=== PATIENT | female | born 1935 | race Caucasian/White ===

== ENCOUNTER 2019-05-04 12:27 | Inpatient (IN) ==
--- NOTE | 2019-05-04 13:25 | Diag Imaging Result Doc PS360 ---
CHEST-PORTABLE - 05/04/2019 INDICATION: fever COMPARISON: 11/23/2018 FINDINGS: The lungs are normally expanded and clear. Heart size and mediastinal contours are normal. No pneumothorax or pleural effusion. There are stable large rounded calcifications projecting over the lung bases bilaterally. IMPRESSION: Negative exam. Electronically signed by Eric Cannon 05/04/2019 1:22 PM
[2019-05-04 13:35] LABS: BASO# 0.02 X1000 (0.0-0.2); BASO% 0.3 % (0.0-0.8); EOS% 1.4 % (0.0-10.0); HEMATOCRIT 39.7 % (37.0-47.0); HEMOGLOBIN 13.3 g/dL (12.0-16.0); IMM GRAN# 0.02 X1000 (0.0-0.04); IMM GRAN% 0.3 % (0.0-0.5); LYMPH# 0.35 X1000 (1.2-3.4); LYMPH% 4.8 % (20.5-51.1); MCHC 33.5 g/dL (33-37); MCV 86.7 FL (81-99); MONO# 0.55 X1000 (0.11-0.59); MONO% 7.5 % (1.7-9.3); MPV 9.9 FL (7.4-10.4); NEUT# 6.28 X1000 (1.4-6.5); NEUT% 85.7 % (42.2-75.2); PLT 199 X1000 (130-400); RBC 4.58 XMIL (4.2-5.4); RDW 13.7 % (11.5-14.5); WBC 7.32 X1000 (4.8-10.8)
[2019-05-04 13:40] LABS: INR 1.1; PROTIME 15.1 Seconds (11.0-16.0)
[2019-05-04 13:41] LABS: PTT 30.6 Seconds (22.3-41.8)
[2019-05-04 13:55] LABS: AGAP 15; ALB/GLOB RATIO 1.1; ALBUMIN 3.4 g/dL (3.5-5.0); ALKALINE PHOSPHATASE 106 U/L (32-104); BUN 31 mg/dL (8-22); CALCIUM 8.3 mg/dL (8.8-10.2); CHLORIDE 94 mmol/L (98-107); COSMO 278; CREATININE 1.6 mg/dL (0.5-0.9); ESTIMATED GFR 31; GLUCOSE 158 mg/dL (70-104); GOT 12 U/L (10-30); GPT < 5 U/L (10-36); POTASSIUM 3.8 mmol/L (3.5-5.1); SODIUM 134 mmol/L (136-145); TCO2 25 mmol/L (25-35); TOTAL BILIRUBIN 1.13 mg/dL (0.20-1.00); TOTAL PROTEIN 6.5 g/dL (6.3-8.3)
[2019-05-04 15:41] LABS: URINE SOURCE CLEAN CATCH
[2019-05-04 15:49] LABS: BILIRUBIN URINE NEGATIVE (NEGATIVE); BLOOD URINE NEGATIVE (NEGATIVE); COLOR YELLOW; GLUCOSE URINE NEGATIVE (NEGATIVE); KETONE URINE NEGATIVE (NEGATIVE); LEUKOCYTES URINE MODERATE (NEGATIVE); NITRITE URINE POSITIVE (NEGATIVE); PROTEIN URINE TRACE mg/dL (NEGATIVE); TURBIDITY URINE HAZY (CLEAR); UROBILINOGEN URINE 3 mg/dL (NORMAL)
[2019-05-04 15:51] LABS: UR EPITHELIAL CELLS <10 /HPF (<10); URINE BACTERIA 4+ /HPF; URINE RBC <10 /HPF (<10); URINE WBC TNTC /HPF (<10)
[2019-05-04] MEDS ORDERED: KEFZOL 1 GM/D5W 1 GM/50 ML IVPB IV ONE (15:51)
[2019-05-04] MEDS ORDERED: MORPHINE IV ONE (17:09)
--- NOTE | 2019-05-04 17:23 | PROVIDER DOCUMENTATION ---
This chart was entered by Maria Teresa Padilla Scribe, acting as scribe for Clyde Pardo MD. HPI-Rash/Wound/ReCheck - General Chief Complaint: Nausea/Vomiting Stated Complaint: RASH X MONTH, VOMITING TODAY Time Seen by Provider: 05/04/19 12:55 Source: patient, family Allergies/Adverse Reactions: Allergies Allergy/AdvReac Type Severity Reaction Status Date / Time indomethacin [From Indocin] Allergy NAUSEA/VOMI Verified 12/26/16 22:36 TING indomethacin sodium * Allergy NAUSEA/VOMI Verified 12/26/16 22:36 [From Indocin] TING ketoprofen [From Oruvail] Allergy RASH Verified 11/23/18 13:45 meloxicam [From Mobic] Allergy RASH Verified 12/26/16 22:36 propranolol HCl * Allergy RASH Verified 12/26/16 22:36 [From Inderal [place]] celecoxib [From Celebrex] AdvReac Unknown Verified 11/23/18 13:45 etodolac AdvReac RASH Verified 11/23/18 13:45 nabumetone [From Relafen] AdvReac Unknown Verified 11/23/18 13:45 oxaprozin [From Daypro] AdvReac RASH Verified 11/23/18 13:45 piroxicam [From Feldene] AdvReac RASH Verified 11/23/18 13:45 Home Medications: Home Medication List Medication Instructions Recorded Confirmed Last Taken Type Aspirin EC 81 mg PO DAILY 01/07/16 12/26/16 12/26/16 History Clonidine [Catapres] 0.1 mg PO BID 01/07/16 12/26/16 12/26/16 History Febuxostat [Uloric] 40 mg PO DAILY 01/07/16 12/26/16 12/26/16 History Hydralazine [Apresoline] 25 mg PO BID 01/07/16 12/26/16 12/26/16 History Metoprolol Tartrate [Lopressor] 100 mg PO BID 01/07/16 12/26/16 12/26/16 History Naloxegol Oxalate [Movantik] 25 mg PO DAILY 01/07/16 12/26/16 12/26/16 History Tolterodine Tartrate [Detrol LA] 4 mg PO DAILY 01/07/16 12/26/16 12/26/16 History Simvastatin [Zocor] 20 mg PO DAILY 12/26/16 12/26/16 12/26/16 History Acetaminophen [Tylenol] 1,000 mg PO Q8H #0 tablet 12/31/16 Unknown Rx Chlorhexidine Gluconate [Peridex] 15 ml MT BID #0 udc 12/31/16 Unknown Rx Cyanocobalamin [Vitamin B-12] 1,000 microgm PO DAILY #0 tablet 12/31/16 Unknown Rx Docusate Sodium [Colace] 200 mg PO QHS #0 capsule 12/31/16 Unknown Rx Ergocalciferol (Vitamin D2) 50,000 unit PO Q7D #0 capsule 12/31/16 Unknown Rx [Vitamin D] Famotidine [Pepcid] 40 mg PO DAILY #0 tablet 12/31/16 Unknown Rx Febuxostat [Uloric] 40 mg PO DAILY #0 tablet 12/31/16 Unknown Rx Ferrous Sulfate 325 mg PO WBREAKFAST #0 tablet 12/31/16 Unknown Rx Folic Acid 1 mg PO BID #0 tablet 12/31/16 Unknown Rx Magnesium Hydroxide [Milk of 30 ml PO DAILY PRN PRN #0 udc 12/31/16 Unknown Rx Magnesia] Oxycodone I.r. [Oxy Ir] 5 - 10 mg PO Q3H PRN PRN #40 12/31/16 Unknown Rx capsule Polyethylene Glycol 3350 [Miralax] 17 gm PO QHS #0 powder, packet 12/31/16 Unknown Rx Rivaroxaban [Xarelto] 10 mg PO Q24H #0 tablet 12/31/16 Unknown Rx Rivaroxaban [Xarelto] 10 mg PO DAILY@0600 #0 tablet 01/05/17 Unknown Rx Levofloxacin [Levaquin] 250 mg PO DAILY 4 Days #4 tab NS 11/23/18 Unknown Rx Cephalexin [Keflex] 500 mg PO 4XDAY #30 cap 05/04/19 Unknown Rx - History of Present Illness-Dermatology Nature of Presenting Problem: Patient is a 83 year old female who presents with generalized rash, fever, nausea and vomiting. Patient's family states patient rash has been present for 1.5 months. Family reports patient was seen by PCP 1 month ago and was diagnosed with scabies. Family states patient received medication and applied it twice with no improvement of symptoms. Family states going back to PCP and the PCP gave the patient a steroid shot and a referral to dermatology. Patient states fever, nausea and vomiting started this morning. Location: reports: generalized Quality: reports: painful Severity: reports: mild Onset/Duration: reports: other (1.5 months) Timing: reports: still present, getting worse Context/Associated Symptoms: reports: rash Locality of Occurance: Home Similar Symptoms Previously?: Yes Recently seen or treated by another doctor?: Yes Review of Systems - Adult - REVIEW OF SYSTEMS - ADULT Constitutional: reports: see HPI, fever. denies: chills, fatique Eyes: reports: no symptoms reported Ears, Nose, Mouth & Throat: reports: no symptoms reported Cardiovascular: reports: no symptoms reported Respiratory: reports: no symptoms reported Gastrointestinal: reports: see HPI, nausea, vomiting. denies: abdominal pain, diarrhea Genitourinary: reports: no symptoms reported Musculoskeletal: reports: no symptoms reported Integumentary: reports: see HPI, rash. denies: hives, itching Neurological: reports: no symptoms reported Psychiatric: reports: no symptoms reported Endocrine: reports: no symptoms reported Hematologic/Lymphatic: reports: no symptoms reported Allergic/Immunologic: reports: no symptoms reported All Other Systems: Reviewed and Negative Past History - Adult - PAST MEDICAL HISTORY-ADULT Review of Records: reports: Old Records Reviewed, Nursing Assessment Review, Medications Reviewed, Social history reviewed & non-contributory. Major Childhood Illnesses: reports: denies history Cardiovascular: reports: CHF, HTN, hyperlipidemia, [place] Respiratory: reports: sleep apnea Gastrointestinal: reports: denies history Obstetrical/Gynecological: reports: denies history Genitourinary: reports: dialysis (stopped 3 years prior per pt) Musculoskeletal: reports: denies history Neurological: reports: denies history Psychiatric: reports: denies history Endocrine/Immune: reports: Diabetes Other Conditions: reports: denies history - PRIOR SURGERIES/PROCEDURES Surgical/Procedure History: reports: cholecystectomy, hysterectomy, tonsillectomy, hernia repair, joint replacement - IMMUNIZATION STATUS Childhood Immunizations: See Nurse Assessment Flu Vaccine: See Nurse Assessment - FAMILY HISTORY Family History: reviewed, not pertinent - SOCIAL HISTORY Smoking: cigarettes (former) Substance Use: denies Living Situation: family Physical Exam-General - PHYSICAL EXAM-ADULT Initial Vital Signs Reviewed: Yes - CONSTITUTIONAL General Appearance: alert, no apparent distress. negative: lethargic, slow to respond - HEAD, EARS, NOSE, MOUTH & THROAT HENMT: other (no dentition present). negative: angioedema, hearing deficit - RESPIRATORY Respiratory: chest non-tender, lungs clear, normal breath sounds. negative: crackles, rhonchi, stridor - CARDIOVASCULAR Cardiovascular: normal peripheral pulses, regular rate, rhythm. negative: tachycardia, systolic murmur - GASTROINTESTINAL (ABDOMEN) Abdominal Exam: normal bowel sounds, non tender, soft. negative: guarding, rebound - MUSCULOSKELETAL Extremity: normal range of motion, other (generalized excoriated skin rash to all extremities). negative: deformity, swelling - SKIN Integumentary: other (generalized excoriated skin rash). negative: cyanosis, ecchymosis, jaundice - NEUROLOGIC Neurologic: grossly normal. negative: aphasia, facial droop - PSYCHIATRIC Psych/Mental Status: normal mood/affect, oriented x 3. negative: anxious Progress - PLAN OF CARE/RESULTS Progress/Plan/Lab Results: Vital Signs - 8 hr 05/04/19 12:38 05/04/19 13:02 05/04/19 13:30 Temperature 101.1 F H Pulse Rate 60 Respiratory Rate 20 Blood Pressure 155/82 158/87 O2 Sat by Pulse Oximetry 97 98 100 05/04/19 13:36 05/04/19 14:03 05/04/19 14:17 Temperature 100.3 F H Pulse Rate Respiratory Rate Blood Pressure 138/62 146/52 O2 Sat by Pulse Oximetry 100 100 05/04/19 15:32 05/04/19 17:08 Temperature 98.9 F Pulse Rate 81 Respiratory Rate 18 Blood Pressure 177/79 127/75 O2 Sat by Pulse Oximetry 98 96 Laboratory Results - last 24 hr 05/04/19 05/04/19 05/04/19 13:16 13:16 13:16 WBC 7.32 RBC 4.58 Hgb 13.3 Hct 39.7 MCV 86.7 MCH 29.0 MCHC 33.5 RDW Std Deviation 13.7 Plt Count 199 MPV 9.9 Immature Gran % (Auto) 0.3 Neut % (Auto) 85.7 H Lymph % (Auto) 4.8 L [place] % (Auto) 7.5 Eos % (Auto) 1.4 Baso % (Auto) 0.3 Immature Gran # (Auto) 0.02 Neut # (Auto) 6.28 Lymph # (Auto) 0.35 L [place] # (Auto) 0.55 Eos # (Auto) 0.10 Baso # (Auto) 0.02 PT INR PTT (Actin FS) Sodium 134 L Potassium 3.8 Chloride 94 L Carbon Dioxide 25 Anion Gap 15 BUN 31 H Creatinine 1.6 H Estimated GFR/1.73 m2 31 BUN/Creatinine Ratio 19 Glucose 158 H Calculated Osmolality 278 Calcium 8.3 L Total Bilirubin 1.13 H AST 12 ALT < 5 L Alkaline Phosphatase 106 H Troponin T Total Protein 6.5 Albumin 3.4 L Globulin 3.1 Albumin/Globulin Ratio 1.1 Plasma Lactate 2.0 Urine Source Urine Color Urine Turbidity Urine pH Ur Specific [place] Urine Protein Ur Glucose (Stick) Ur Ketones (Stick) Urine Blood Urine Nitrite Urine Bilirubin Urobilinogen Dipstick Urine Leukocytes Urine WBC (Auto) Urine RBC (Auto) U Epithel Cells (Auto) Urine Bacteria (Auto) 05/04/19 05/04/19 05/04/19 13:16 13:16 14:34 WBC RBC Hgb Hct MCV MCH MCHC RDW Std Deviation Plt Count MPV Immature Gran % (Auto) Neut % (Auto) Lymph % (Auto) [place] % (Auto) Eos % (Auto) Baso % (Auto) Immature Gran # (Auto) Neut # (Auto) Lymph # (Auto) [place] # (Auto) Eos # (Auto) Baso # (Auto) PT 15.1 INR 1.10 PTT (Actin FS) 30.6 Sodium Potassium Chloride Carbon Dioxide Anion Gap BUN Creatinine Estimated GFR/1.73 m2 BUN/Creatinine Ratio Glucose Calculated Osmolality Calcium Total Bilirubin AST ALT Alkaline Phosphatase Troponin T 0.014 Total Protein Albumin Globulin Albumin/Globulin Ratio Plasma Lactate Urine Source CLEAN CATCH Urine Color YELLOW Urine Turbidity HAZY Urine pH 7.0 Ur Specific [place] 1.010 Urine Protein TRACE A Ur Glucose (Stick) NEGATIVE Ur Ketones (Stick) NEGATIVE Urine Blood NEGATIVE Urine Nitrite POSITIVE A Urine Bilirubin NEGATIVE Urobilinogen Dipstick 3 A Urine Leukocytes MODERATE A Urine WBC (Auto) TNTC A Urine RBC (Auto) <10 U Epithel Cells (Auto) <10 Urine Bacteria (Auto) 4+ Orders Category Date Time Status CHEST-PORTABLE [RAD] Stat Exams 05/04/19 13:07 Completed CBC WITH ELECTRONIC DIFF [HEME] Stat Lab 05/04/19 13:16 Completed COMPREHENSIVE METABOLIC PANEL [CHEM] Stat Lab 05/04/19 13:16 Completed LACTATE, PLASMA [CHEM] Stat Lab 05/04/19 13:16 Completed PROTIME WITH INR [COAG] Stat Lab 05/04/19 13:16 Completed PTT [COAG] Stat Lab 05/04/19 13:16 Completed TROPONIN T Stat Lab 05/04/19 13:16 Completed URINALYSIS W/POSS RFLX CULT [URINALYSIS] Stat Lab 05/04/19 14:34 Completed URINE CULTURE [RM] Routine Lab 05/04/19 16:02 Received Cefazolin 1 gm/D5w [Kefzol 1 gm/D5w] Med 05/04/19 15:51 Discontinued 1 gm in 50 ml IV NOW Morphine Med 05/04/19 17:09 Discontinued 2 mg IV NOW ONE Result Diagrams: 05/04/19 13:16 05/04/19 13:16 - XRAY 1 XRAY Study: Chest Impression: See EMR Report ( CHEST-PORTABLE - 05/04/2019 INDICATION: fever COMPARISON: 11/23/2018 FINDINGS: The lungs are normally expanded and clear. Heart size and mediastinal contours are normal. No pneumothorax or pleural effusion. There are stable large rounded calcifications projecting over the lung bases bilaterally. IMPRESSION: Negative exam. Electronically signed by Eric Cannon 05/04/2019 1:22 PM 05/04/19 1322 Interpreting Physician: Eric Cannon MD Dictated Date/Time: 05/04/19 1321 cc: Clyde Pardo MD; Darren Mckeon MD) - CONSULTS/PCP/HOSPITALIST Notification #1 *Consult/PCP/Hospitalist*: DIONISIO Kennedy for Hospitalist Time Discussed: 17:16 Reason/Comments: Dr. Pardo consulted with Marcia about patient. Consult Disposition: Will see in ED, Admit Departure - Departure Date of Disposition Decision: 05/04/19 Time of Disposition Decision: 17:16 DIAGNOSIS: Rash and nonspecific skin eruption, Urinary tract infection Disposition: ADMITTED INPATIENT 09 Certified Medical Emergency: Emergent Condition: Serious Prescriptions: Cephalexin [Keflex] 500 mg PO 4XDAY #30 cap Referrals and Follow-Ups: Darren Mckeon MD [Primary Care Provider] - - Critical Care Note This patient required my direct & personal management of CC.: No Comments: Patient admitted, Rx canceled Attestation - Physician/ PATRICIA Attestation The physician spent face to face time with patient:: Yes Advanced Practice Provider documentation review:: Supervising physician onsite and consulted in the evaluation and care of this patient. The physician did have a face to face encounter with the patient. This chart was documented by the indicated scribe, (Maria Teresa Padilla Scribe) and accurately reflects the services I performed and decisions made by me, Clyde Pardo MD, as attested by the provider's signature.
[2019-05-04] MEDS ORDERED: ULTRAM PO PRN (18:06)
--- NOTE | 2019-05-04 18:34 | HISTORY AND PHYSICAL ---
HISTORY OF PRESENT ILLNESS: Ms. Colon is an 83-year-old who sees Dr. Mckeon and they report that about 6 weeks ago she started developing a rash that started in her hands. She does not remember if it was the palmar or dorsal surface, but they described this what sounds like pustules and then they will drain and they will leave a pigmented macule. They started in the hands and they progressed up the arms and then developed some in her thighs as well. Dr. Mckeon was wondering about scabies and she got treated twice with, I think Elimite, and really saw no improvement. They do not really itch, but they are painful and so she has various staged lesions symmetrically on both hands and arms and around her anterior face and the inner thighs. None on the feet. She denies fever or chills, but today did not feel very good. She came to the emergency room. Denies unusual exposure to rodents. She does have dogs inside. Her daughter and son-in-law live in her house and they have not had any such lesions. She is not suspicious of bedbugs or of mites. PAST MEDICAL HISTORY: 1. Diabetes mellitus type 2, which is well controlled. 2. Chronic kidney disease. 3. Sleep apnea for which the patient wears CPAP at night. 4. Coronary artery disease. She has had a cardiac stent placed x1 in 2003. 5. Hypertension. 6. Vitamin D deficiency. 7. Acid reflux disease. 8. Ventral hernia. 9. Osteoarthritis. 10. Kidney stones. 11. History of spina bifida. 12. Spinal stenosis. PAST SURGICAL HISTORY: 1. Tonsillectomy. 2. Hysterectomy. 3. Bladder suspension. 4. Benign lumpectomy. 5. Lithotripsy. 6. Left knee replacement. 7. Cardiac stent placement in 2003 x1. 8. Bilateral cataract surgery. 9. Carpal tunnel surgery. 10. Cholecystectomy. 11. History of bowel surgery for bowel obstruction secondary to adhesions. SOCIAL HISTORY: She is a former smoker. She used to smoke about a pack a day for several years, quit in the . Denies any alcohol or illicit drugs. Her daughter and son-in-law, I think are living with her at this time. FAMILY HISTORY: Mother from motor vehicle accident. Father of natural causes. ALLERGIES: The patient reports allergy to Indocin, Mobic, and Inderal. LIST OF MEDICATIONS: Reviewed. REVIEW OF SYSTEM: They do not report any weight gain or loss. No real fever or chills until today. [place] like she had a low-grade fever, subjective fever. Respiratory: No increased work of breathing or dyspnea. Cardiovascular: No chest pain or palpitation. GI/: No change in bowels, diarrhea. No hematochezia. No gross hematuria or dysuria. Neurologic: No focal complaints. Gynecologic/Hemologic: No significant history. PHYSICAL EXAMINATION: Vital Signs: Temperature 98.9 degrees, pulse 80, respirations 18, blood pressure 127/75. HEENT: Pupils are equal and round. Lungs: Clear in all lung green. Cardiovascular: Regular rhythm and rate without murmur or S3. Abdomen: Soft. Skin: Warm and dry. O2 saturation 96%. Her rash described various staged lesions between pustules and macules that vary from a point. Most of them are around 1 cm in size and they start in the both the palmar surface, the dorsal surface and all the way up her arms, more concentrated on the hands and then concentrated on the anterior face and the inner thighs symmetrically. No oral and nasal mucosa lesions that I could detect. Poor dental hygiene. Missing several teeth and I do not appreciate cervical, supraclavicular or femoral adenopathy. LABORATORY DATA: White count 7320, hematocrit is 39, platelet count a 199,000. Sodium 134, potassium 3.8, chloride 94, BUN 31, creatinine 1.6, blood sugar 158, calcium 8.3, AST 12, ALT is 5, alkaline phosphatase 106, albumin 3.4. Protime 15.1, INR 1.10, PTT 30.6. Urinalysis 4+ bacteria, too numerous to count white blood cells. Chest x-ray negative. No infiltrates. Heart size and mediastinal contours are normal. ASSESSMENT AND PLAN: 1. Appears to have urinary tract infection and we will we will treat this empirically. I am going to give her Rocephin 1 g IV now, then q.24 hours. 2. She has a rash that looks like a pustule rash and I am not sure whether this is a bacterial folliculitis. It is possible that there is pemphigus or we have some type of vesicular rash going on or even viral. I am going to treat her for gram-positive skin organisms, Streptococcus and Staphylococcus. I think, we will try daptomycin, because she does have renal insufficiency. 3. Chronic kidney disease with probably stage IIIB. Her creatinine appears to be stable. She does not appear dehydrated. 4. History of coronary artery disease. Stent has been placed. She does not seem to show any sign of active ischemia. 5. Diabetes mellitus type 2. Sugars have been under good control. 6. Hypertension. So, we will check a C-reactive protein and a sedimentation rate. I guess I will go ahead and order an MIRYAM, antinuclear antigen and [id number] DNA. I am going to ask Dr. Vaughn, Infectious Disease, to look in. We are going to see if we get Wound Care to help with topical care for this rash. I think we can probably apply some Bactroban ointment and maybe put that on 3 times a day to the area and we will give her fluids with normal saline at 85 mL an hour. We are going to check T4, TSH, B12, and folate, and then I guess we will talk to Dr. Vaughn and see what kind of immunoglobulin or antibody studies we need to look. cc: Jadiel Vernon MD
[2019-05-04] MEDS ORDERED: ZOFRAN IV PRN (18:36)
[2019-05-04] MEDS ORDERED: ROCEPHIN 1 GM in NS 50 ML IV SCH (18:36)
[2019-05-04] MEDS ORDERED: CUBICIN 500 MG in NS 100 ML IV SCH (20:00)
[2019-05-04] MEDS: HUMALOG SUBQ SCH (21:50)
[2019-05-04] MEDS: BACTROBAN OINTMENT TOP SCH (22:02)
[2019-05-04] MEDS: NS 1,000 ML IV SCH (22:24)
[2019-05-05] MEDS: HUMALOG SUBQ SCH ×4 (06:16→21:14)
[2019-05-05 08:06] LABS: BASO# 0.01 X1000 (0.0-0.2); BASO% 0.1 % (0.0-0.8); EOS# 0.17 X1000 (0.0-0.7); EOS% 2.1 % (0.0-10.0); HEMATOCRIT 38.3 % (37.0-47.0); HEMOGLOBIN 12.6 g/dL (12.0-16.0); IMM GRAN# 0.02 X1000 (0.0-0.04); IMM GRAN% 0.3 % (0.0-0.5); LYMPH% 11.4 % (20.5-51.1); MCH 28.6 PG (27-31); MCHC 32.9 g/dL (33-37); MCV 86.8 FL (81-99); MONO% 17.7 % (1.7-9.3); MPV 10.1 FL (7.4-10.4); NEUT# 5.41 X1000 (1.4-6.5); NEUT% 68.4 % (42.2-75.2); PLT 186 X1000 (130-400); RBC 4.41 XMIL (4.2-5.4); RDW 13.6 % (11.5-14.5); WBC 7.91 X1000 (4.8-10.8)
[2019-05-05 08:16] LABS: AGAP 9; ALB/GLOB RATIO 0.9; ALBUMIN 2.7 g/dL (3.5-5.0); ALKALINE PHOSPHATASE 84 U/L (32-104); BUN 27 mg/dL (8-22); CALCIUM 8.1 mg/dL (8.8-10.2); CHLORIDE 101 mmol/L (98-107); COSMO 278; CREATININE 1.3 mg/dL (0.5-0.9); ESTIMATED GFR 39; GLUCOSE 86 mg/dL (70-104); GOT 11 U/L (10-30); GPT < 5 U/L (10-36); MAGNESIUM 1.7 mg/dL (1.5-2.7); POTASSIUM 3.3 mmol/L (3.5-5.1); SODIUM 137 mmol/L (136-145); TCO2 27 mmol/L (25-35); TOTAL BILIRUBIN 0.84 mg/dL (0.20-1.00); TOTAL PROTEIN 5.7 g/dL (6.3-8.3)
[2019-05-05 08:41] LABS: FREE T4 1.33 ng/dL (0.93-1.70); TSH 0.64 uIUmL (0.27-4.20)
[2019-05-05] MEDS: BACTROBAN OINTMENT TOP SCH ×2 (10:47→20:38)
[2019-05-05] MEDS: NS 1,000 ML IV SCH (12:11)
[2019-05-05] MEDS ORDERED: ELIMITE 5% CREAM TOP ONE (13:37)
--- NOTE | 2019-05-05 15:07 | INFECTIOUS DISEASE CONSULT REP ---
DATE: 05/05/2019 CONCLUSION: The patient is admitted to the hospital with a dermatitis, the exact etiology of which is uncertain to me. RECOMMENDATIONS: I have obtained a culture from some of the patient's involved skin. Also, I have requested Dr. Guardado to do skin biopsies, one on the arm and one on the leg and send that to pathology for diagnosis. I have also discontinued Rocephin and put the patient on cefepime. I ordered permethrin cream treatment of the patient. DISCUSSION: The patient tells me in the past month she has developed a diffuse rash and fever. She does not remember having any contact with insects. She did tell me that she showers just once a week and that her house sometimes is dirty. She had been seen by Dr. Mckeon who treated the patient with Elimite, and apparently there was no improvement. The patient tells me that the lesions do itch sometimes, and she does scratch them at times but more likely she is just having pain from the lesions. Laboratory studies show a CBC with white count of 7910, hemoglobin 12.6 and platelet count 186,000. Creatinine is 1.3. GFR is 39. Liver function studies are normal. Urine culture is growing gram-negative torin. Skin culture is pending. Chest x- ray shows clear lung green. RPR was nonreactive. REVIEW OF SYSTEMS: Eyes and Ears: The patient denies trouble hearing or seeing. Neck: No stiffness. Respiratory: No cough or shortness of breath. Cardiac: No chest pain or palpitations. GI: No nausea, vomiting, or diarrhea. : No dysuria or flank pain. Integument: See present illness. Bones, joints, muscles: No joint swelling, no muscle aching. Neurologic: The patient tells me that it is very hard for her to walk. She has not had any seizures. She has not recently lost any motor or sensory function. SALES DEVELOPMENT MANAGER: The patient is a 8, para 5, AB 3. She has had a hysterectomy. MEDICAL DISEASES: Positive for diabetes mellitus, hypertension, chronic kidney disease, sleep apnea, coronary artery disease for which the patient had a cardiac stent placed, hypertension, vitamin D deficiency, acid reflux disease, ventral hernia, osteoarthritis, kidney stones, history of spina bifida and spinal stenosis. PREVIOUS HOSPITALIZATION AND OPERATIONS: She has had a cholecystectomy, tonsillectomy, labor and deliveries. She has had 3 miscarriages, bladder suspension, breast biopsy for a lump which was benign, lithotripsy, left total knee arthroplasty, cardiac stent placement, bilateral cataract surgery, carpal tunnel surgery, history of bowel surgery for bowel obstruction secondary to adhesions. INFECTIOUS DISEASE HISTORY: Positive for pneumonia and UTI. FAMILY HISTORY: Positive for diabetes mellitus, stroke and myocardial infarction. SOCIAL HISTORY: The patient lives in a house. She lives with her daughter and her daughter has 2 dogs. She is a . ALLERGIES: Indocin, ketoprofen, Mobic, propranolol, Celebrex, etodolac, Relafen, Daypro and Feldene. HOME MEDICATIONS: Keflex, Peridex, Catapres, vitamins, Colace, Pepcid,Uloric, Ferrous Sulfate, Apresoline, Levaquin, Lopressor, Movantik, oxycodone, Xarelto, Zocor and Detrol. PHYSICAL EXAMINATION: Vital Signs: Temperature 97.9; pulse 64; respirations 18; blood pressure 146/68. The patient is 5 feet 9 inches tall and weighs 218 pounds. General: This is an ill- appearing elderly female. She is in no acute distress. HEENT: She is missing her bottom teeth. There are iron posts that are sticking up which she says she attaches her teeth to. Neck: No meningismus. Lungs: Clear to auscultation. Cardiovascular: Heart rate is regular. Peripheral pulses are palpable. Abdomen: Soft and nontender. Neurologic: The patient is awake. She can move her extremities. There is no tremor. Her sensation is intact to touch. Her memory as regarding her medical history was decreased. Integument: The patient has diffuse erythematous areas any of which were excoriated. There were some larger wounds that had erythematous areas but no purulence. Thank you for the consult. cc: Man Vaughn MD [facility]
[2019-05-05] MEDS: TYLENOL PO PRN (15:37)
[2019-05-05] MEDS: MAXIPIME 2 GM in NS 100 ML IV SCH (15:54)
--- NOTE | 2019-05-05 21:14 | PROGRESS NOTE ---
DATE: 05/05/2019 SUBJECTIVE: Ms. Colon feels maybe a little better. The Bactroban we put on her skin did seem to irritate it more. It has not appeared to suggest pemphigus, but it does not appear to be an infection, and she has new vesicles noticed on her fingers. She remains afebrile. OBJECTIVE: Vital signs: Her temp was 98.3 degrees, pulse 62, respirations 17, blood pressure 130/56. Eyes: Pupils are equal and round. Lungs: Clear in all lung green. Cardiovascular: Regular rhythm and rate without murmur or S3. Abdomen: Soft. Skin: Warm and dry. ASSESSMENT AND PLAN: 1. Admitted to the hospital with dermatitis, etiology is uncertain. It has components that to be consistent with pemphigoid. We may get some skin biopsies and send them off for diagnosis. Dr. Vaughn has discontinued Rocephin and put the patient on cefepime, and is going to try Permethrin cream. I am going to let her use some Eucerin with triamcinolone lotion and see if this will help. Her lab is unremarkable. CBC unremarkable. Electrolytes unremarkable. B12, and folate good levels. Thyroid was normal, so we will see if we can get a biopsy and go from there. 2. Diabetes mellitus. Continue to follow sugars. 3. Chronic kidney disease. Aware. 4. History of coronary artery disease. cc: Jadiel Vernon MD
[2019-05-06] MEDS: MAXIPIME 2 GM in NS 100 ML IV SCH ×2 (01:00→15:41)
[2019-05-06] MEDS: NS 1,000 ML IV SCH ×2 (01:03→15:41)
[2019-05-06] MEDS ORDERED: NORCO-7.5 PO ONE (04:07)
[2019-05-06] MEDS: HUMALOG SUBQ SCH ×4 (06:28→20:54)
[2019-05-06] MEDS: BACTROBAN OINTMENT TOP SCH ×2 (10:26→20:53)
--- NOTE | 2019-05-06 11:22 | PROGRESS NOTE ---
DATE: 05/06/2019 SUBJECTIVE: Ms. Colon is a little more comfortable. She did get some rest last night. Still has some new bullous lesions forming on her fingers. OBJECTIVE: Vitals: Temperature 98.7 degrees, pulse 63, respirations 21, blood pressure 149/65. HEENT: Pupils are equal. Lungs: Clear in all lung green. Cardiovascular: Regular rhythm and rate without murmur or S3. Abdomen: Soft. Integument: The skin is warm and dry. She has mainly old lesions on the medial thighs, on her hands and arms, and on her face consistent with bullae at various stages. She has some new bullae on her fingers on the right hand, and the plan is to probably get a biopsy of it. It looks like it is consistent with pemphigus. I am going to start her on high-dose prednisone with hopes to see if we can calm this down. I will start her with IV Solu-Medrol and we will give her 80 mg IV q.6 hours. On exam today otherwise, no real change. ASSESSMENT AND PLAN: 1. Dermatitis consistent with pemphigoid, with mainly bullae symmetrical, started in her arms and inner thighs, but lesions on her face as well. Antibiotic was discontinued. I do not see evidence of a bacterial infection. I am going to start her on Solu-Medrol, high dose prednisone, and see if we can get a biopsy to help direct this a little better. 2. Diabetes mellitus, type 2. Of course about to start her on steroids so I am sure sugars will be elevated. We will adjust her sliding scale. 3. General weakness. 4. Chronic kidney disease. 5. History of coronary artery disease. cc: Jadiel Vernon MD
[2019-05-06] MEDS ORDERED: PREDNISONE PO ONE (13:09)
[2019-05-06] MEDS ORDERED: NS 250 ML ONE (14:18)
[2019-05-06] MEDS: KENALOG 0.1% OINTMENT TOP SCH ×2 (15:40→18:32)
[2019-05-06] MEDS: SOLU-MEDROL IV SCH ×3 (15:41→22:08)
--- NOTE | 2019-05-06 18:04 | CONSULTATION ---
DATE OF CONSULTATION: 05/05/2019 HISTORY: Ms. Fatemeh Colon is an 83-year-old white female who has developed a bullous rash and open sores involving her thighs and her hands bilaterally, even her face. The etiology of this rash is unknown, and we were asked to perform a skin biopsy. PLAN: We will plan to do that either tomorrow or Wednesday when pathology is present, using local anesthetic at the bedside. In the meantime, she is she is going to be treated with Solu-Medrol per Dr. Vernon. cc: Ct Guardado MD
[2019-05-07] MEDS: MAXIPIME 2 GM in NS 100 ML IV SCH ×2 (01:09→14:02)
[2019-05-07] MEDS: NS 1,000 ML IV SCH (03:38)
[2019-05-07] MEDS: SOLU-MEDROL IV SCH ×4 (04:22→22:00)
[2019-05-07] MEDS: HUMALOG SUBQ SCH ×4 (06:02→21:53)
[2019-05-07] MEDS: KENALOG 0.1% OINTMENT TOP SCH ×3 (11:34→17:36)
[2019-05-07] MEDS: BACTROBAN OINTMENT TOP SCH ×2 (11:35→21:52)
--- NOTE | 2019-05-07 17:07 | PROGRESS NOTE ---
DATE: 05/07/2019 SUBJECTIVE: Ms. Colon is feeling a little better. I think the rash is drying up. I do not see any new bullae or vesicles starting. OBJECTIVE: Vital signs: Temp 98.1 degrees, pulse 68, respirations 16, blood pressure 166/71. HEENT: Pupils are equal and round. Lungs: Clear in all lung green. Cardiovascular: Regular rhythm and rate without murmur or S3. LABS: Blood sugars 104, 165, 142. ASSESSMENT AND PLAN: Appears to be a rash consistent with a pemphigoid type rash. We are hoping to get a biopsy. I have started her on high-dose steroids. She does seem to be improving. 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 We are following her sugars. She seems to be a little bit stronger. She is eating well. I thought we would check an RPR, but I have low suspicion for an infectious etiology. cc: Jadiel Vernon MD
[2019-05-08] MEDS: TYLENOL PO PRN (02:01)
[2019-05-08] MEDS: NS 1,000 ML IV SCH ×4 (02:02→18:47)
[2019-05-08] MEDS: MAXIPIME 2 GM in NS 100 ML IV SCH ×2 (02:02→14:50)
[2019-05-08] MEDS: SOLU-MEDROL IV SCH ×4 (05:21→23:33)
[2019-05-08] MEDS: HUMALOG SUBQ SCH ×4 (06:11→21:56)
[2019-05-08] MEDS: BACTROBAN OINTMENT TOP SCH (09:54)
[2019-05-08] MEDS: KENALOG 0.1% OINTMENT TOP SCH ×3 (09:55→18:46)
[2019-05-08] MEDS ORDERED: XYLOCAINE 1%/EPI 1:100,000 ONE (13:15)
--- NOTE | 2019-05-08 17:00 | OPERATIVE NOTE ---
PROCEDURE DATE: 05/08/2019 HISTORY: Ms. Fatemeh Colon is an 83-year-old white female who is hospitalized with a bullous rash. It was felt that it represented bullous pemphigoid. I was asked to perform punch biopsies for diagnosis. PREOPERATIVE DIAGNOSIS: Bullous pemphigoid rash, extremities and face. POSTOPERATIVE DIAGNOSIS: Bullous pemphigoid rash, extremities and face. PRINCIPAL PROCEDURE: 1. 3.5 mm punch biopsies x2 of rash lesion left thigh. 2. 3.5 mm punch biopsy x1 of rash lesion left arm. SURGEON: Ct Guardado MD. ANESTHESIA: Local. ESTIMATED BLOOD LOSS: Less than 10 mL. DRAINS: None. INDICATIONS: As above. DESCRIPTION OF PROCEDURE: At the bedside, I used 1% lidocaine with epinephrine for local anesthetic. I used 2 types of medium to send the specimens to the pathologist. The first one was formalin and the second one was Devendra's fixative. In formalin, I placed two 3.5 mm punch biopsies taken from a rash lesion medial aspect left thigh. The first punch biopsy was taken from the center of this lesion and the second punch biopsy was taken from the edge of the lesion. They were both sent together in formalin. My third punch biopsy was performed involving the lesion of the left arm, and this 3.5 mm punch biopsy was taken just lateral to the edge of the lesion involving the normal skin just outside the lesion. It was sent in this Devendra's fixative. All punch biopsy sites were close primarily with a simple 3-0 nylon stitch. Dressings were applied. She tolerated these procedures well. I took the specimens to the pathologist myself. cc: Ct Guardado MD
--- NOTE | 2019-05-08 18:06 | PROGRESS NOTE ---
DATE: 05/08/2019 SUBJECTIVE: Ms. Colon is feeling much better. Skin lesions look much better. Biopsy was done today. OBJECTIVE: Temperature 97.9 degrees, pulse 122, respirations 20, blood pressure 147/96. Pupils are equal and round. Lungs are clear in all lung green. Cardiovascular: Regular rhythm and rate without murmur or S3. DIAGNOSTIC STUDIES: Blood sugars 176, 162, and 229. ASSESSMENT AND PLAN: 1. Rash, which I think is consistent with pemphigoid-type rash. It is clearly better on steroids. We will go ahead and get the biopsy and look. I do not see any sign of bacterial infection. RPR is negative. She is responding to the hydration as well. 2. She feels stronger. Lab is unremarkable. 3. Diabetes mellitus, type 2. Sugar is under good control. REVIEW OF HER ORDERS: She is on methylprednisone 80 mg IV q.6 h., and I think we can change that to p.o. medicine and probably can go home tomorrow. We have her on meropenem per Radha Donald NP, but culture data from the left leg was Pseudomonas aeruginosa and E coli from urine. cc: Jadiel Vernon MD
[2019-05-08] MEDS: MERREM 1 GM in NS 50 ML IV SCH (18:46)
--- NOTE | 2019-05-08 20:04 | INFECTIOUS DISEASE PROGRESS NO ---
DATE: 05/08/2019 PRESENT ILLNESS: Ms. Colon is being treated for a pemphigoid type rash, which has grown Pseudomonas aeruginosa. She also has an extended-spectrum beta lactamase producing Escherichia coli urinary tract infection. MEDICATIONS: She has been receiving cefepime 2 g IV every 12 hours, which we will discontinue. PHYSICAL EXAMINATION: Vital Signs: Temperature is 97.9 degrees, pulse rate 122, respiratory rate 20, blood pressure 147/96, O2 saturation is 100% on room air. General: This is an elderly, chronically ill appearing female. She is lying in the bed currently in no acute distress. HEENT: Oral mucous membranes are pink and moist. Dentition is poor. Conjunctivae are pink. Neck: Supple. Trachea is midline. Cardiovascular: Heart rate is irregular, appears to be in atrial fibrillation versus sinus rhythm with ectopy on the monitor. Respiratory: Lung sounds are clear to auscultation bilaterally. Abdomen: Soft, obese, and nontender. Bowel sounds are active. Integumentary: There is a pemphigoid type dermatitis noted to her extremities and face, with areas of excoriation and erythema. There is a PICC line in place to the right upper arm. The site is without edema, erythema, or drainage. Neurologic: She is awake, alert, and forgetful, but appropriate. Able to move all extremities in the bed with generalized weakness. LABORATORY AND X-RAY: None available today. However, her left leg has grown Pseudomonas aeruginosa, and a urine culture did grow an Escherichia coli which is ESBL producing. No imaging reports today. ASSESSMENT AND PLAN: Ms. Colon is being treated for a skin infection which has grown a Pseudomonas. She has been receiving cefepime, which we will discontinue at this time due to the extended spectrum beta lactamase producing Escherichia coli in her urine. She states she was having symptoms of dysuria, but that has resolved. We will start her on meropenem 1 g intravenously every 12 hours based on her renal insufficiency. She has not had labs drawn for a few days, so we will go ahead and order blood work for in the morning. These plans have been discussed with and recommended by Dr. Vaughn. COMORBIDITIES: for Ms. Colon include diabetes mellitus, chronic kidney disease, coronary artery disease, gastroesophageal reflux disease, and osteoarthritis. Dictated by DIONISIO Lezama for Man Vaughn MD cc: Man Vaughn MD MTDD
[2019-05-09] MEDS: MERREM 1 GM in NS 50 ML IV SCH ×3 (05:42→16:18)
[2019-05-09] MEDS: SOLU-MEDROL IV SCH ×3 (05:42→17:46)
[2019-05-09] MEDS: NS 1,000 ML IV SCH ×2 (05:42→16:54)
[2019-05-09] MEDS: HUMALOG SUBQ SCH ×4 (06:44→21:38)
[2019-05-09 07:09] LABS: BASO# 0.01 X1000 (0.0-0.2); BASO% 0.1 % (0.0-0.8); HEMATOCRIT 36.6 % (37.0-47.0); HEMOGLOBIN 12.1 g/dL (12.0-16.0); IMM GRAN# 0.03 X1000 (0.0-0.04); IMM GRAN% 0.4 % (0.0-0.5); LYMPH# 0.44 X1000 (1.2-3.4); LYMPH% 5.6 % (20.5-51.1); MCH 28.5 PG (27-31); MCHC 33.1 g/dL (33-37); MCV 86.3 FL (81-99); MONO# 0.31 X1000 (0.11-0.59); MONO% 3.9 % (1.7-9.3); MPV 10.2 FL (7.4-10.4); NEUT# 7.11 X1000 (1.4-6.5); PLT 158 X1000 (130-400); RBC 4.24 XMIL (4.2-5.4); RDW 13.4 % (11.5-14.5)
[2019-05-09 07:40] LABS: BANDS 2 % (0-1); LYMPHS 4 % (21-51); SEGS 92 % (42-75)
[2019-05-09 07:52] LABS: CALCIUM 8.1 mg/dL (8.8-10.2); CREATININE 1.1 mg/dL (0.5-0.9); POTASSIUM 3.2 mmol/L (3.5-5.1)
[2019-05-09] MEDS ORDERED: KLOR-CON PO ONE (08:05)
[2019-05-09] MEDS: KENALOG 0.1% OINTMENT TOP SCH ×3 (09:32→16:18)
[2019-05-09] MEDS: TYLENOL PO PRN ×2 (15:43→21:36)
--- NOTE | 2019-05-09 15:52 | INFECTIOUS DISEASE PROGRESS NO ---
DATE: 05/09/2019 PRESENT ILLNESS: Ms. Colon is being treated for a pemphigoid rash which has grown Pseudomonas aeruginosa to her left lower extremity. She also has an extended spectrum beta lactamase producing Escherichia coli urinary tract infection. MEDICATIONS: She is receiving meropenem 1 g IV every 12 hours as a renally modified dose. PHYSICAL EXAMINATION: Vital Signs: Temperature is 97.5 degrees, pulse rate 89, respiratory rate 18, blood pressure 138/69, O2 saturation is 100% on room air. General: This is an elderly, chronically ill-appearing female. She is lying in bed currently, in no acute distress. HEENT: Atraumatic, normocephalic. Oral mucous membranes are pink and moist. Dentition is poor. Conjunctivae are pink. Neck: Supple. Trachea is midline. Respiratory: Lung sounds are clear to auscultation bilaterally. Cardiovascular: Heart rate is irregular. Appears to have an underlying sinus rhythm with frequent PACs. Abdomen: Soft, obese, nontender. Bowel sounds are active. Integumentary: The rash to her face has improved somewhat and is about the same to her upper and lower extremities. There are sutures in place to the left thigh and left forearm which are all dry and intact. Neurologic: She is awake, alert, oriented, and appropriate. LABORATORY AND X-RAY: Today her white count is 7.9, hemoglobin 12.1, platelet count 158,000. Creatinine is 1.1. GFR 47. Her left leg has grown Pseudomonas aeruginosa and her urine culture grew an Escherichia coli which is extended spectrum beta lactamase producing. No imaging reports today. ASSESSMENT AND PLAN: Ms. Colon is being treated for a Pseudomonas skin infection, as well as an extended spectrum beta lactamase producing Escherichia coli urinary tract infection. Both of these are covered by the use of meropenem, which we will continue at this time. She will need a total of 14 days of meropenem for the treatment of her UTI. There is a PICC line in place so I will go ahead and put in orders for [facility] to follow her at home. She does have her daughter and son-in-law at home and also caregivers in home 7 days a week, which should be able to assist her with her IV medications. We will then follow up with her in the office in 2 weeks. We are awaiting the pathology report on her skin biopsies. These plans have been discussed with and recommended by Dr. Vaughn. COMORBIDITIES: For Ms. Colon include that she is elderly, with diabetes mellitus, chronic kidney disease, coronary artery disease, gastroesophageal reflux disease, and osteoarthritis. Dictated by DIONISIO Lezama for Man Vaughn MD cc: Man Vaughn MD MTDD
[2019-05-09] MEDS ORDERED: SOLU-MEDROL IV SCH (16:00)
--- NOTE | 2019-05-09 18:45 | PROGRESS NOTE ---
DATE: 05/09/2019 SUBJECTIVE: The patient is resting comfortably in bed. She states that she has not been able to sleep for the last 3 nights. OBJECTIVE: Vital Signs: Temperature 97.9 degrees, blood pressure 148/80, heart rate 64, respirations 18, O2 saturation 98% on room air. General: This is a chronically ill-appearing elderly female lying in bed. No acute distress. Heart: S1, S2 normal. Regular rate and rhythm. Lungs: Clear to auscultation bilaterally. No wheezing. No rales. No rhonchi. Abdomen: Positive bowel sounds. Soft, nontender, nondistended. Extremities: No edema. No cyanosis. Neurologic: The patient is alert and oriented x3. LABS: Sodium 139, potassium 3.2, chloride 106, CO2 21, BUN 26, creatinine 1.1, glucose 189, calcium 8.1. ASSESSMENT AND PLAN: 1. Bullous Pemphigoid. The culture is growing Pseudomonas. Continue with antibiotic therapy and steroid therapy. 2. Urinary tract infection secondary to extended spectrum beta-lactamases Escherichia coli. Continue with antibiotic therapy. 3. Insomnia. This is likely secondary to high-dose steroid therapy. We will start weaning the patient's steroids. We will also start the patient on trazodone to help with sleep. 4. Hypokalemia. We will replace the patient's potassium. 5. Acute kidney injury. Improved. We will continue on normal saline for another day and then discontinue tomorrow. 6. Deep vein thrombosis prophylaxis. We will start the patient on Lovenox. cc: Anna Boyd MD MTDD
[2019-05-09] MEDS ORDERED: DESYREL PO SCH (21:00)
[2019-05-09] MEDS: LOVENOX SUBQ SCH (21:37)
[2019-05-10] MEDS: SOLU-MEDROL IV SCH ×3 (03:08→18:26)
[2019-05-10] MEDS: MERREM 1 GM in NS 50 ML IV SCH ×2 (04:15→18:29)
[2019-05-10] MEDS: HUMALOG SUBQ SCH ×4 (06:38→20:10)
[2019-05-10] MEDS: NS 1,000 ML IV SCH ×3 (06:41→20:23)
[2019-05-10 07:11] LABS: MAGNESIUM 1.3 mg/dL (1.5-2.7); PHOSPHORUS 2.3 mg/dL (2.7-4.5)
[2019-05-10 07:13] LABS: CALCIUM 7.6 mg/dL (8.8-10.2); CREATININE 0.9 mg/dL (0.5-0.9); POTASSIUM 2.9 mmol/L (3.5-5.1)
[2019-05-10 07:16] LABS: HEMATOCRIT 36.6 % (37.0-47.0); HEMOGLOBIN 12.2 g/dL (12.0-16.0); IMM GRAN# 0.03 X1000 (0.0-0.04); IMM GRAN% 0.4 % (0.0-0.5); LYMPH# 0.42 X1000 (1.2-3.4); LYMPH% 5.7 % (20.5-51.1); MCH 28.7 PG (27-31); MCHC 33.3 g/dL (33-37); MCV 86.1 FL (81-99); MONO# 0.53 X1000 (0.11-0.59); MONO% 7.1 % (1.7-9.3); MPV 10.1 FL (7.4-10.4); NEUT# 6.45 X1000 (1.4-6.5); NEUT% 86.8 % (42.2-75.2); PLT 167 X1000 (130-400); RBC 4.25 XMIL (4.2-5.4); RDW 13.3 % (11.5-14.5); WBC 7.43 X1000 (4.8-10.8)
[2019-05-10] MEDS ORDERED: MAGNESIUM SULFATE 2 GM/S.W.I. 2 GM/50 ML IVPB IV ONE (07:43)
[2019-05-10] MEDS ORDERED: KLOR-CON PO ONE (07:43)
[2019-05-10] MEDS: KENALOG 0.1% OINTMENT TOP SCH ×3 (09:26→18:39)
--- NOTE | 2019-05-10 16:04 | PROGRESS NOTE ---
DATE: 05/10/2019 SUBJECTIVE: The patient is resting comfortably. She does have a new lesion on her right inner thigh. OBJECTIVE: Vital Signs: Temperature 97.3 degrees, blood pressure 157/73, heart rate 84, respirations 18, O2 saturation 99% on room air. General: This is a chronically ill-appearing elderly female, lying in bed in no acute distress. Heart: S1, S2 normal. Regular rate and rhythm. Lungs: Clear to auscultation bilaterally. No wheezing. No rales. No rhonchi. Abdomen: Positive bowel sounds. Soft, nontender, nondistended. Extremities: No edema. Improving rash on the arms and legs. Neurologic: The patient is alert and oriented x4. LABS: Sodium 139, potassium 2.9, chloride 106, CO2 22. BUN 26, creatinine 0.9, glucose 179, magnesium 1.3, phosphorus 2.3, calcium 7.6. ASSESSMENT AND PLAN: 1. Bullous Pemphigoid. Improving. Continue on steroid therapy, as well as antibiotic therapy. 2. Urinary tract infection secondary to extended spectrum beta lactamase Escherichia coli. Continue with antibiotic therapy. 3. Insomnia. Will increase the trazodone dosage to 50 mg at bedtime. 4. Hypokalemia. We will replace the patient's potassium. 5. Hypomagnesemia. Will replace the patient's magnesium. 6. Hypophosphatemia. We will start the patient on Neutra-Phos. 7. Atrial fibrillation. Rate controlled. 8. Deep vein thrombosis prophylaxis. Continue on xarelto. cc: Anna Boyd MD MTDD
--- NOTE | 2019-05-10 18:24 | INFECTIOUS DISEASE PROGRESS NO ---
DATE: 05/10/2019 PRESENT ILLNESS: The patient has a rash from which pseudomonas was isolated. It is possible that the rash is due to pemphigus and the patient has a secondary pseudomonas infection on it. The patient also has an extended-spectrum yjer-qbiiqzfja-zjlwohvgy E. coli urinary tract infection. MEDICATIONS: The patient is on meropenem, with the dose modified because of the patient's endstage renal disease. This is day 2 of treatment with meropenem. The patient also is on steroids. PHYSICAL EXAMINATION: Vital signs: Temperature is 97.3 degrees, pulse 84, respirations 18, blood pressure 157/73. Generally, this is an ill-appearing elderly female. She is in no acute distress. Head, eyes, ears, nose, throat: She can hear my spoken words and see near objects. She does not have any white coating of her tongue. Neck: No meningismus. Lungs clear to auscultation. Cardiovascular: Heart rate is regular. Abdomen is soft and nontender. Integument: Most all of the patient's rashes are improving. They are not nearly as moist as they were and some are getting smaller. On the patient's buttock there is a tiny erythematous area, which I think is due to a pressure sore. Neurologic: The patient is awake. She can move her extremities. There is no tremor. DIAGNOSTIC DATA: There were no radiographic studies done today on the patient. ASSESSMENT AND PLAN: 1. The patient has pseudomonas infected wounds and an extended-spectrum fdfi-ihzzhpsyx-vhpoyetwn Escherichia coli urinary tract infection. My plan is to continue meropenem. 2. Comorbidities include diabetes mellitus, chronic kidney disease, coronary artery disease, gastroesophageal reflux disease and osteoarthritis. 3. The patient has possible pemphigoid dermatitis. 4. The patient also has an extended-spectrum [id number]-culpoakxc Escherichia coli urinary tract infection. The plan is to continue with meropenem. The patient also is on steroids. cc: Man Vaughn MD
[2019-05-10] MEDS: NEUTRA-PHOS PO SCH ×2 (18:39→20:09)
[2019-05-10] MEDS: DESYREL PO SCH (20:09)
[2019-05-10] MEDS: LOVENOX SUBQ SCH (20:09)
[2019-05-11] MEDS: SOLU-MEDROL IV SCH ×3 (01:12→18:29)
[2019-05-11] MEDS: MERREM 1 GM in NS 50 ML IV SCH ×3 (04:15→22:45)
[2019-05-11] MEDS: HUMALOG SUBQ SCH ×5 (06:23→23:05)
[2019-05-11 07:06] LABS: HEMATOCRIT 36.4 % (37.0-47.0); HEMOGLOBIN 12.1 g/dL (12.0-16.0); IMM GRAN# 0.08 X1000 (0.0-0.04); IMM GRAN% 1.1 % (0.0-0.5); LYMPH# 0.49 X1000 (1.2-3.4); LYMPH% 6.9 % (20.5-51.1); MCH 28.5 PG (27-31); MCHC 33.2 g/dL (33-37); MCV 85.6 FL (81-99); MONO# 0.35 X1000 (0.11-0.59); MONO% 4.9 % (1.7-9.3); NEUT% 87.1 % (42.2-75.2); PLT 171 X1000 (130-400); RBC 4.25 XMIL (4.2-5.4); RDW 13.3 % (11.5-14.5); WBC 7.12 X1000 (4.8-10.8)
[2019-05-11] MEDS ORDERED: MAGNESIUM SULFATE 2 GM/S.W.I. 2 GM/50 ML IVPB IV ONE (07:28)
[2019-05-11 07:33] LABS: CALCIUM 7.9 mg/dL (8.8-10.2); POTASSIUM 3.9 mmol/L (3.5-5.1)
[2019-05-11] MEDS: KENALOG 0.1% OINTMENT TOP SCH ×3 (10:01→23:06)
[2019-05-11] MEDS: NEUTRA-PHOS PO SCH ×4 (10:03→23:05)
[2019-05-11] MEDS ORDERED: CARDIZEM IV ONE (10:53)
[2019-05-11] MEDS: XARELTO PO SCH (14:41)
--- NOTE | 2019-05-11 16:29 | INFECTIOUS DISEASE PROGRESS NO ---
DATE: 05/11/2019 PRESENT ILLNESS: Ms. Colon has a pemphigoid-type rash which has also grown a Pseudomonas infection. She is also being treated for an extended spectrum beta lactamase producing Escherichia coli urinary tract infection. MEDICATIONS: She is on day 3 of treatment with meropenem 1 g IV every 12 hours as a renally modified dose. PHYSICAL EXAMINATION: Vital signs: Temperature is 98 degrees, pulse rate 107, respiratory rate 18, blood pressure 136/77, O2 saturation is 100% on room air. General: This is a chronically ill- appearing, elderly female. She is sitting up in a chair currently, in no acute distress. HEENT: Atraumatic, normocephalic. Oral mucous membranes are pink and moist. Dentition is poor. Conjunctivae are pink. Neck: Supple. Trachea is midline. Cardiovascular: Irregularly irregular. She appears to be in atrial fibrillation on the monitor. Respiratory: Lung sounds are clear to auscultation bilaterally. Diminished in the bases. Integumentary: Her rashes seem to be improving. They are dry but still have noted erythema and scabby abrasions with popped blisters to her upper and lower extremities bilaterally. Neurologic: She is awake, alert, and appropriate, and moving all extremities independently. LABORATORY AND X-RAY: Today her white count is 7.12, hemoglobin 12.1, platelet count 171,000. Creatinine is 1. GFR 53. Her left leg has grown a Pseudomonas aeruginosa and her urine grown an Escherichia coli which was ESBL producing. ASSESSMENT AND PLAN: Ms. Colon is being treated for a Pseudomonas which is growing to her left thigh as well as an extended spectrum beta lactamase producing Escherichia coli urinary tract infection. Meropenem will cover both of these. At this point, her GFR has improved so we will increase her dose to 1 g of meropenem every 8 hours. Orders are already in for psychotherapist social worker to consult the infusion company for home IV meropenem on discharge. The patient will need a total of 2 weeks to complete her treatment. These plans have been discussed with and recommended by Dr. Vaughn. COMORBIDITIES: For Ms. Colon include that she is elderly, with diabetes mellitus, chronic kidney disease, coronary artery disease, gastroesophageal reflux disease, and osteoarthritis. Dictated by DIONISIO Lezama for Man Vauhgn MD cc: Man Vaughn MD [facility]
--- NOTE | 2019-05-11 17:49 | PROGRESS NOTE ---
DATE: 05/11/2019 SUBJECTIVE: The patient is resting comfortably in bed. She states that she feels a lot better today and her lesions on her arms and legs have improved. OBJECTIVE: Vital Signs: Temperature 98 degrees, blood pressure 166/90, heart rate 82, respirations 18, O2 saturation is 100% on room air. General: This is a chronically ill- appearing, elderly female lying in bed in no acute distress. Heart: S1, S2 normal. Regular rate and rhythm. Lungs: Equal air entry bilaterally. No crackles. No rales. Abdomen: Positive bowel sounds. Soft, nontender, nondistended. Extremities: There is a healing rash on the arms and legs. Edema 1+ in the lower extremities. Neurologic: The patient is alert and oriented x3. LABORATORY DATA: White blood cell count 7.1, hemoglobin 12, hematocrit 36, platelets 171,000. Sodium 138, potassium 3.9, chloride 106, BUN 27, creatinine 1, glucose 191, magnesium 1.6, phosphorus 2.6, calcium 7.9. ASSESSMENT AND PLAN: 1. Bullous pemphigoid. Improved. Continue with steroids, antibiotics and wound care. 2. Urinary tract infection secondary to extended-spectrum beta-lactamase Escherichia coli. Continue with antibiotic therapy. 3. Atrial fibrillation. We will restart the patient's beta-joby and Xarelto. 4. Insomnia. Improved. Continue on trazodone. 5. Hypomagnesemia. We will replace the patient's magnesium. 6. Chronic kidney disease. Stable. 7. Diabetes mellitus type 2. Continue on sliding scale insulin. 8. Hypophosphatemia. We will continue on Neutra-Phos. 9. Continue with physical therapy. cc: Anna Boyd MD
[2019-05-11] MEDS ORDERED: COLACE PO SCH (21:00)
[2019-05-11] MEDS: DESYREL PO SCH (22:50)
[2019-05-11] MEDS: LOPRESSOR PO SCH (22:51)
[2019-05-12] MEDS: SOLU-MEDROL IV SCH ×2 (01:06→10:39)
[2019-05-12 06:58] LABS: HEMATOCRIT 35.9 % (37.0-47.0); MCH 28.8 PG (27-31); MCHC 33.4 g/dL (33-37); MCV 86.1 FL (81-99); MPV 9.8 FL (7.4-10.4); RBC 4.17 XMIL (4.2-5.4); RDW 13.2 % (11.5-14.5); WBC 9.09 X1000 (4.8-10.8)
[2019-05-12] MEDS: HUMALOG SUBQ SCH ×2 (07:09→11:43)
[2019-05-12] MEDS: MERREM 1 GM in NS 50 ML IV SCH ×2 (07:09→13:48)
[2019-05-12 07:25] LABS: CALCIUM 7.6 mg/dL (8.8-10.2); CREATININE 0.9 mg/dL (0.5-0.9); MAGNESIUM 1.8 mg/dL (1.5-2.7); PHOSPHORUS 3.4 mg/dL (2.7-4.5); POTASSIUM 4.1 mmol/L (3.5-5.1)
[2019-05-12] MEDS ORDERED: FERROUS SULFATE PO SCH (08:00)
[2019-05-12] MEDS: LOPRESSOR PO SCH (08:53)
[2019-05-12] MEDS: NEUTRA-PHOS PO SCH (08:54)
[2019-05-12] MEDS: KENALOG 0.1% OINTMENT TOP SCH ×2 (08:57→13:50)
[2019-05-12] MEDS ORDERED: ULORIC PO SCH (09:00)
[2019-05-12] MEDS ORDERED: MOVANTIK PO SCH (09:00)
[2019-05-12] MEDS ORDERED: DETROL LA PO SCH (09:00)
[2019-05-12 11:17] VITALS: BP 152/86
[2019-05-12] MEDS: XARELTO PO SCH (11:43)
--- NOTE | 2019-05-22 19:52 | DISCHARGE SUMMARY ---
ADMISSION DATE: 05/04/2019 DISCHARGE DATE: 05/12/2019 FINAL DISCHARGE DIAGNOSES: 1. Bullous pemphigoid. 2. Urinary tract infection secondary to extended spectrum beta lactamase E coli. 3. Atrial fibrillation. 4. Insomnia. 5. Hypomagnesemia. 6. Chronic kidney disease. 7. Hypophosphatemia. 8. Diabetes mellitus type 2. CONSULTATIONS: 1. ID consultation with Dr. Vaughn. 2. General Surgery consultation with Dr. Guardado. PROCEDURES: Punch biopsies of her rash on the left leg. HOSPITAL COURSE: Ms. Colon is an 83-year-old female with a history of multiple medical problems who presented to the ER with a rash involving her trunk and extremities. On admission, the patient was also noted to have a urinary tract infection and cultures were obtained and the patient was started on antibiotic therapy. In light of the rash, ID was consulted. It was thought that the patient possibly had bullous pemphigoid, but General Surgery was consulted to perform a punch biopsy of the rash. The biopsy was performed on 05/08/2019. The patient also had cultures of the fluid coming from the rash. Ultimately, it grew out Pseudomonas aeruginosa and the patient's antibiotic coverage was adjusted. Also, the urine culture grew out ESBL. The patient improved with antibiotic and steroid therapy. Also, Physical Therapy was consulted. Ultimately, the pathology report confirmed the diagnosis of bullous pemphigoid. The patient's rash was noted to be markedly improved on the day of discharge. It was recommended by Dr. Vaughn that the patient continue on meropenem 1 g every 8 hours for a total of 2 weeks. The patient was discharged home on 05/12/2019. DISCHARGE MEDICATIONS: 1. Meropenem 1 g IV every 8 hours x 2 weeks. 2. Aspirin 81 mg p.o. daily. 3. Colace 200 mg oral at bedtime. 4. Vitamin D 50,000 units oral once a week. 5. Pepcid 40 mg p.o. daily. 6. Uloric 40 mg oral daily. 7. Ferrous sulfate 325 mg oral with breakfast. 8. Folic acid 1 mg oral twice a day. 9. Lopressor 100 mg oral twice a day. 10. Movantik 25 mg oral daily. 11. MiraLAX 17 g oral at bedtime. 12. Prednisone taper. 13. Xarelto 10 mg oral every 24 hours. 14. Zocor 20 mg oral daily. 15. Trazodone 50 mg oral at bedtime. 16. Triamcinolone ointment applied to affected area three times a day. DISCHARGE DIET: Low sodium diet. ACTIVITY: As tolerated. FOLLOWUP INSTRUCTIONS: The patient will need to follow up with Dr. Man Vaughn as scheduled by his clinic. cc: Anna Boyd MD
== END 2019-05-12 16:36 | disposition home health service (06) | DRG 596 ==
LOC: ED 12:27 → SUATTDRO 18:30 → 3N 18:30
PROVIDERS: ATTEND Internal Medicine
CPT/HCPCS: 36569; 71010; 71045; 80048; 80053; 81001; 82607; 82746; 82948; 83605; 83735; 84100; 84439; 84443; 84484; 85025; 85027; 85610; 85651; 85730; 86038; 86039; 86140; 86235; 86592; 87070; 87077; 87088; 87186; 88300; 88305; 96365; 96375; 97162; 97530; 99285; A9270; J0690; J0692; J0878; J1650; J1815; J2185; J2270; J2920; J2930; J3475; J7030; J7050; J7506; J7512; XXXXX

== ENCOUNTER 2019-05-22 15:21 | Inpatient (IN) ==
[2019-05-22] MEDS ORDERED: ZOFRAN IV PRN (18:19)
[2019-05-22] MEDS ORDERED: TYLENOL PO PRN (18:19)
[2019-05-22] MEDS ORDERED: XARELTO PO ONE (18:51)
[2019-05-22] MEDS ORDERED: LEVAQUIN PO ONE (18:52)
[2019-05-22 20:11] LABS: BASO# 0.01 X1000 (0.0-0.2); BASO% 0.1 % (0.0-0.8); EOS# 0.08 X1000 (0.0-0.7); EOS% 0.8 % (0.0-10.0); HEMATOCRIT 35.9 % (37.0-47.0); HEMOGLOBIN 11.7 g/dL (12.0-16.0); LYMPH# 0.72 X1000 (1.2-3.4); LYMPH% 7.1 % (20.5-51.1); MCH 28.5 PG (27-31); MCHC 32.6 g/dL (33-37); MCV 87.6 FL (81-99); MONO# 0.66 X1000 (0.11-0.59); MONO% 6.5 % (1.7-9.3); MPV 10.6 FL (7.4-10.4); NEUT# 8.59 X1000 (1.4-6.5); NEUT% 84.5 % (42.2-75.2); PLT 122 X1000 (130-400); RDW 13.8 % (11.5-14.5); WBC 10.16 X1000 (4.8-10.8)
[2019-05-22 20:44] LABS: ALB/GLOB RATIO 1.4; ALBUMIN 3.2 g/dL (3.5-5.0); CALCIUM 8.5 mg/dL (8.8-10.2); CREATININE 1.1 mg/dL (0.5-0.9); MAGNESIUM 1.7 mg/dL (1.5-2.7); POTASSIUM 3.9 mmol/L (3.5-5.1); TOTAL BILIRUBIN 0.64 mg/dL (0.20-1.00); TOTAL PROTEIN 5.5 g/dL (6.3-8.3)
--- NOTE | 2019-05-22 20:54 | HISTORY AND PHYSICAL ---
PRIMARY CARE PROVIDER: Dr. Darren Mckeon. INFECTIOUS DISEASE: Dr. Man Vaughn. CHIEF COMPLAINT: Direct admit from DIONISIO Ruffin from Dr. Vaughn' office. The patient is going to be direct admit for right upper extremity DVT. Start her on Xarelto. HPI: Ms. Colon is 83-year-old female who was recently discharged from our service on 05/12/2019 where she was treated for a rash and also grew out Pseudomonas and was being treated for an ESBL producing E coli urinary tract infection. She was sent home on IV meropenem. She subsequently developed some right upper extremity swelling am unsure if a venous Doppler was performed however we were told that she has a right upper extremity DVT and will be a direct admit secondary to comorbidities. We will initiate her on Xarelto, go ahead and check a venous ultrasound in the a.m. as well as a D-dimer, Ms. Colon is a little upset about having to be back in the hospital and she does not understand the reason for her admission and I assured her that we will give her medicine for DVT as well as continue on antibiotic as per Dr. Vaughn. She was previously on Xarelto for atrial fibrillation. Patient is unsure if she has been taking that medicine or not. Other past medical history 1. Insomnia. 2. Sleep apnea on home CPAP. 3. Chronic kidney disease, diabetes mellitus type 2, hypertension. Again her PICC line was discontinued today, she was previously on meropenem. She has been switched to p.o. Levaquin and we will initiate p.o. Xarelto . PAST MEDICAL HISTORY: 1. Diabetes mellitus type 2. 2. Chronic kidney disease. 3. Sleep apnea patient wears CPAP at night. 4. Carotid artery disease status post stent. 5. Hypertension. 6. Vitamin D deficiency. 7. Acid reflux. 8. Ventral hernia. 9. Osteoarthritis. 10. Kidney stones. 11. History of spina bifida. 12. Spinal stenosis. PAST SURGICAL HISTORY: 1. Tonsillectomy. 2. Hysterectomy. 3. Bladder suspension. 4. Benign lumpectomy. 5. Lithotripsy. 6. Left knee replacement. 7. Cardiac stent in 2003 x1. 8. Bilateral cataract surgery. 9. Carpal tunnel surgery. 10. Cholecystectomy. 11. History of bowel surgery for bowel obstruction secondary to adhesions. SOCIAL HISTORY: She is a former smoker, she smoked a pack a day for several years, she quit in the 80s. No alcohol or illicit drug use, I believe her daughter and son-in-law have moved in with her. Her daughter is currently undergoing chemotherapy for cancer and her son-in-law is currently in the ED per patient's report is going to be admitted to [facility]. FAMILY HISTORY: Mother passed from an MVA. Father of natural causes. ALLERGY: To Indocin, Mobic and Inderal. HOME MEDICATIONS: Have not been verified. PHYSICAL EXAM: Temperature is 98.1 degrees, heart rate 72, respiration 20, blood pressure 113/72, O2 is 96% on room air. GENERAL: Ms. Colon is a 83-year-old female who is sitting up in the bed in no acute distress. HEENT: Atraumatic, normocephalic. PERRL. NECK: Supple, trachea midline. CARDIOVASCULAR: S1, S2 appreciated. No murmurs, gallops, or rubs noted. RESPIRATORY: Lung sounds clear bilaterally. GI: Soft, nontender, nondistended, positive bowel sounds 4 quads. EXTREMITIES: Lower extremities did have some pedal edema. Right upper extremity is somewhat swollen. No pitting edema. SKIN: Warm, lesions on her upper arms are healing, lesions on her bilateral lower extremities in the upper are healing. There is some redness still however is much improved from her previous admission. NEURO: No focal deficits noted. REVIEW OF SYSTEMS: Twelve-point review of systems completely negative except for those mentioned in HPI . LABORATORY, DIAGNOSTIC DATA: Are ordered and pending. ASSESSMENT AND PLAN: 1. Presumed right upper extremity deep vein thrombosis, I do not have any diagnostics or data on this, we will initiate her on Xarelto and check a venous Doppler in the a.m., D-dimer. Patient has not been complaining of any shortness of breath. Her peripherally inserted central catheter line was removed today I believe secondary to the deep vein thrombosis . 2. Rash. Patient was on steroids and antibiotics and wound care. We will continue with those once home medications have been reconciled. 3. Urinary tract infection secondary to extended spectrum beta-lactamase Escherichia coli. Will continue with p.o. Levaquin per Dr. Vaughn' recommendations. 4. Atrial fibrillation. Continue beta joby and Xarelto. 5. Insomnia. Patient was on trazodone. 6. Chronic kidney disease. Will check labs. 7. Diabetes mellitus type 2. Place her on sliding scale with pattern blood sugars. 8. Known coronary artery disease. No complaints of chest pain. 9. Hypertension, patient normotensive. 10. Further recommendation to follow physician evaluation, laboratory and diagnostic data. Dictated by DIONISIO Lockett for Duane Desir MD cc: Man Vaughn MD MTDD
[2019-05-22] MEDS ORDERED: HUMALOG SUBQ SCH (21:00)
[2019-05-22 21:10] LABS: URINE SOURCE CLEAN CATCH
[2019-05-22 21:17] LABS: BILIRUBIN URINE NEGATIVE (NEGATIVE); BLOOD URINE NEGATIVE (NEGATIVE); COLOR YELLOW; GLUCOSE URINE NEGATIVE (NEGATIVE); KETONE URINE NEGATIVE (NEGATIVE); LEUKOCYTES URINE SMALL (NEGATIVE); NITRITE URINE NEGATIVE (NEGATIVE); PROTEIN URINE TRACE mg/dL (NEGATIVE); SP GRAVITY URINE 1.007; TURBIDITY URINE CLEAR (CLEAR); UROBILINOGEN URINE NORMAL (NORMAL)
[2019-05-22 21:19] LABS: UR EPITHELIAL CELLS <10 /HPF (<10); URINE BACTERIA NEGATIVE /HPF; URINE RBC <10 /HPF (<10); URINE WBC <10 /HPF (<10)
[2019-05-22 21:28] LABS: URINE YEAST PRESENT
[2019-05-22 21:29] LABS: URINE CASTS NONE SEEN; URINE CRYSTALS NONE SEEN; URINE SMALL ROUND CELLS NONE SEEN
[2019-05-23] MEDS ORDERED: XARELTO PO SCH (06:00)
[2019-05-23 06:46] LABS: BASO# 0.01 X1000 (0.0-0.2); BASO% 0.1 % (0.0-0.8); EOS# 0.17 X1000 (0.0-0.7); EOS% 1.7 % (0.0-10.0); HEMATOCRIT 37.8 % (37.0-47.0); HEMOGLOBIN 12.1 g/dL (12.0-16.0); IMM GRAN# 0.12 X1000 (0.0-0.04); IMM GRAN% 1.2 % (0.0-0.5); LYMPH# 1.09 X1000 (1.2-3.4); LYMPH% 11.1 % (20.5-51.1); MCV 87.5 FL (81-99); MONO# 0.98 X1000 (0.11-0.59); MPV 10.5 FL (7.4-10.4); NEUT# 7.41 X1000 (1.4-6.5); NEUT% 75.9 % (42.2-75.2); PLT 121 X1000 (130-400); RBC 4.32 XMIL (4.2-5.4); RDW 13.9 % (11.5-14.5); WBC 9.78 X1000 (4.8-10.8)
--- NOTE | 2019-05-23 06:55 | Diag Imaging Result Doc PS360 ---
CHEST-PORTABLE - 05/23/2019 INDICATION: admit COMPARISON: 05/04/2019 FINDINGS: The lungs are normally expanded and clear. Heart size and mediastinal contours are normal. No pneumothorax or pleural effusion. IMPRESSION: Negative exam. Electronically signed by Eric Cannon 05/23/2019 6:53 AM
[2019-05-23 07:02] LABS: ALB/GLOB RATIO 1.4; ALBUMIN 3.3 g/dL (3.5-5.0); CALCIUM 8.3 mg/dL (8.8-10.2); CREATININE 1.1 mg/dL (0.5-0.9); POTASSIUM 3.7 mmol/L (3.5-5.1); TOTAL BILIRUBIN 0.75 mg/dL (0.20-1.00); TOTAL PROTEIN 5.6 g/dL (6.3-8.3)
--- NOTE | 2019-05-23 07:34 | EKG Report ---
Test Performed on : 05/23/2019 06:57:49 AM Test Reason : chest pain Blood Pressure : / mmHG Vent. Rate : 073 BPM Atrial Rate : 288 BPM P-R Int : 000 ms QRS Dur : 098 ms QT Int : 442 ms P-R-T Axes : 000 034 022 degrees QTc Int : 486 ms Atrial fibrillation. Abnormal ECG When compared with ECG of 26-DEC-2016 23:22, Atrial fibrillation. has replaced Sinus rhythm. Confirmed by Janeen TANG, Jadiel Urbano ([id number]) on 05/23/2019 5:31:01 PM
[2019-05-23 07:51] VITALS: BP 157/60
[2019-05-23] MEDS ORDERED: LEVAQUIN PO SCH (09:00)
[2019-05-24] MEDS ORDERED: XARELTO PO SCH (06:00)
--- NOTE | 2019-05-24 06:56 | DISCHARGE SUMMARY ---
ADMISSION DATE: 05/22/2019 DISCHARGE DATE: 05/23/2019 DISPOSITION: Home. FOLLOW-UP: Patient's PCP Dr. Mckeon. CONSULTATIONS DURING THIS ADMISSION: None. IMAGING STUDIES OF SIGNIFICANCE: A Doppler ultrasound of the right upper extremity showed a subclavian and axillary acute DVT. ADMISSION DIAGNOSES: 1. Right upper extremity deep vein thrombosis. 2. History of diabetes mellitus type 2. 3. History of coronary artery disease. 4. Hypertension. 5. Recently diagnosed bullous pemphigoid. DISCHARGE DIAGNOSES: 1. Right upper extremity subclavian and axillary DVT related to PICC line. 2. Recently diagnosed bullous pemphigoid. 3. Diabetes mellitus. 4. History of coronary artery disease currently asymptomatic. 5. Chronic kidney disease stage IIIA. DISCHARGE MEDICATIONS: 1. Detrol LA 4 mg p.o. daily. 2. Uloric 40 mg p.o. daily. 3. Metoprolol 100 b.i.d. 4. Aspirin 81 mg p.o. daily. 5. Zocor 20 mg p.o. daily. 6. Vitamin B12. 7. Ergocalciferol 50,000 q.7. 8. Famotidine 40 mg p.o. daily. 9. Iron sulfate. 10. Folic Acid 1 mg b.i.d. 11. Rivaroxaban 20 mg p.o. daily. PRESENTING COMPLAINT: A direct admission from primary care doctor's office. HISTORY OF PRESENTING COMPLAINT: Ms. Colon is an 83-year-old elderly female, who has multiple comorbidities including recently diagnosed ESBL UTI and leg cellulitis with superimposed pseudomonal infection, who was getting IV antibiotics at home with a PICC line. When she went for follow-up, she was found to have a swollen right upper extremity so a Doppler ultrasound was done which confirmed a DVT. Patient's line was removed and was directly admitted from Dr. Vaughn's office. HOSPITAL COURSE: Ms. Colon was admitted to the medical floor, and was initially hydrated and started on p.o. Xarelto which the patient tolerated well. Today, the right upper extremity swelling seems to be getting better. Patient is completely asymptomatic otherwise. We think she is fairly stable for discharge. She is going to be on therapeutic Xarelto for at least 3 months, and follow up with the primary care doctor. This morning her vitals show blood pressure is 157/60, pulse of 72, respirations 16, and temperature 98.5 degrees. All the discharge instructions have been discussed with her and she voiced understanding. TIME SPENT FOR DISCHARGE: 35 minutes. cc: MD Dr. Linda Ruvalcaba
== END 2019-05-23 11:47 | disposition home or self-care (01) | DRG 315 ==
LOC: DIRADM 15:21 → 4N 15:35
PROVIDERS: ATTEND Internal Medicine
CPT/HCPCS: 71010; 71045; 80053; 81001; 82948; 83735; 85025; 85379; 87088; 93005; 93010; 93971; 94761; A9270; XXXXX

== ENCOUNTER 2019-06-24 12:22 | Inpatient (IN) ==
[2019-06-24] MEDS ORDERED: NS 1,000 ML ONE (12:52)
[2019-06-24] MEDS ORDERED: ZOFRAN ONE (12:52)
[2019-06-24] MEDS ORDERED: ZOFRAN IV ONE (12:55)
[2019-06-24] MEDS ORDERED: NS 1,000 ML IV ONE ×2 (12:55→15:02)
[2019-06-24 12:58] LABS: ALBUMIN 3.1 g/dL (3.5-5.0); CALCIUM 8.1 mg/dL (8.8-10.2); POTASSIUM 3.1 mmol/L (3.5-5.1); TOTAL BILIRUBIN 1.1 mg/dL (0.20-1.00); TOTAL PROTEIN 6.3 g/dL (6.3-8.3)
[2019-06-24 13:04] LABS: BASO# 0.02 X1000 (0.0-0.2); BASO% 0.1 % (0.0-0.8); HEMATOCRIT 38.9 % (37.0-47.0); HEMOGLOBIN 13.5 g/dL (12.0-16.0); IMM GRAN# 0.07 X1000 (0.0-0.04); IMM GRAN% 0.5 % (0.0-0.5); LYMPH# 0.18 X1000 (1.2-3.4); LYMPH% 1.3 % (20.5-51.1); MCH 28.8 PG (27-31); MCHC 34.7 g/dL (33-37); MCV 83.1 FL (81-99); MONO# 1.42 X1000 (0.11-0.59); MONO% 10.3 % (1.7-9.3); MPV 9.9 FL (7.4-10.4); NEUT# 12.14 X1000 (1.4-6.5); NEUT% 87.8 % (42.2-75.2); PLT 167 X1000 (130-400); RBC 4.68 XMIL (4.2-5.4); RDW 14.4 % (11.5-14.5); WBC 13.83 X1000 (4.8-10.8)
[2019-06-24 13:26] LABS: BILIRUBIN URINE NEGATIVE (NEGATIVE); BLOOD URINE 4+ (NEGATIVE); CLARITY VERY CLOUDY (CLEAR); COLOR YELLOW; GLUCOSE URINE NEGATIVE (NEGATIVE); KETONE URINE NEGATIVE (NEGATIVE); LEUKOCYTES URINE 1+ (NEGATIVE); NITRITE URINE POSITIVE (NEGATIVE); PROTEIN URINE 1+(30 mg/dL) mg/dL (NEGATIVE); SP GRAVITY URINE 1.005; URINE WBC TNTC /HPF (<10); UROBILINOGEN URINE NORMAL
[2019-06-24 13:27] LABS: INR 2.89; PROTIME 31.6 Seconds (11.0-16.0)
[2019-06-24 13:27] LABS: URINE BACTERIA 2+ /HFP; URINE CAST NONE SEEN /LPF; URINE CRYSTAL NONE SEEN /HPF; URINE EPITHELIAL CELLS <10 /HPF (<10); URINE RBC TNTC /HPF (<10); URINE SOURCE CATH; URINE YEAST NONE SEEN /HPF
--- NOTE | 2019-06-24 13:48 | Diag Imaging Result Doc PS360 ---
CHEST-1 VIEW - 06/24/2019 INDICATION: sepsis COMPARISON: 05/23/2019 FINDINGS: The lungs are normally expanded and clear. Heart size and mediastinal contours are normal. No pneumothorax or pleural effusion. IMPRESSION: Negative exam. Electronically signed by Eric Cannon 06/24/2019 1:46 PM
[2019-06-24 14:01] LABS: ANISOCYTOSIS 1+; EOS 2 % (1-10); LYMPHS 10 % (21-51); MONO 2 % (1-9); SEGS 86 % (42-75)
--- NOTE | 2019-06-24 14:16 | PROVIDER DOCUMENTATION ---
This chart was entered by Betsy Ramires Scribe, acting as scribe for Darren Gustafson MD. HPI-General Adult - General Chief Complaint: SEPSIS ALERT - P Stated Complaint: Fever? Time Seen by Provider: 06/24/19 12:17 Source: patient, EMS Allergies/Adverse Reactions: Patient Allergies Allergy/AdvReac Type Severity Reaction Status Date / Time indomethacin [From Indocin] Allergy NAUSEA/VOMI Verified 12/26/16 22:36 TING indomethacin sodium * Allergy NAUSEA/VOMI Verified 12/26/16 22:36 [From Indocin] TING ketoprofen [From Oruvail] Allergy RASH Verified 11/23/18 13:45 meloxicam [From Mobic] Allergy RASH Verified 12/26/16 22:36 propranolol HCl * Allergy RASH Verified 12/26/16 22:36 [From Inderal LA] celecoxib [From Celebrex] AdvReac Unknown Verified 11/23/18 13:45 etodolac AdvReac RASH Verified 11/23/18 13:45 nabumetone [From Relafen] AdvReac Unknown Verified 11/23/18 13:45 oxaprozin [From Daypro] AdvReac RASH Verified 11/23/18 13:45 piroxicam [From Feldene] AdvReac RASH Verified 11/23/18 13:45 Home Medications: Home Medication List Medication Instructions Recorded Confirmed Last Taken Type Aspirin EC 81 mg PO DAILY 01/07/16 05/22/19 05/04/19 History Febuxostat [Uloric] 40 mg PO DAILY 01/07/16 05/22/19 05/04/19 History Metoprolol Tartrate [Lopressor] 100 mg PO BID 01/07/16 05/22/19 05/04/19 21:00 History Naloxegol Oxalate [Movantik] 25 mg PO DAILY 01/07/16 05/22/19 05/04/19 09:00 History Tolterodine Tartrate [Detrol LA] 4 mg PO DAILY 01/07/16 05/22/19 05/04/19 09:00 History Simvastatin [Zocor] 20 mg PO DAILY 12/26/16 05/22/19 05/04/19 09:00 History Cyanocobalamin [Vitamin B-12] 1,000 microgm PO DAILY #0 tablet 12/31/16 05/22/19 Unknown Rx Docusate Sodium [Colace] 200 mg PO QHS #0 capsule 12/31/16 05/22/19 05/04/19 21:00 Rx Ergocalciferol (Vitamin D2) 50,000 unit PO Q7D #0 capsule 12/31/16 05/22/19 05/02/19 09:00 Rx [Vitamin D] Famotidine [Pepcid] 40 mg PO DAILY #0 tablet 12/31/16 05/22/19 05/04/19 Rx Ferrous Sulfate 325 mg PO WBREAKFAST #0 tablet 12/31/16 05/22/19 05/04/19 Rx Folic Acid 1 mg PO BID #0 tablet 12/31/16 05/22/19 05/04/19 Rx Magnesium Hydroxide [Milk of 30 ml PO DAILY PRN PRN #0 udc 12/31/16 05/22/19 Unknown Rx Magnesia] Polyethylene Glycol 3350 [Miralax] 17 gm PO QHS #0 powder, packet 12/31/16 05/22/19 05/04/19 21:00 Rx Prednisone 20 mg PO DIRECTED #30 tab 05/12/19 05/22/19 Unknown Rx Trazodone [Desyrel] 50 mg PO QHS #30 tab 05/12/19 05/22/19 Unknown Rx Triamcinolone 0.1% Oint [Kenalog 0.1 gm TOP TID #1 tube 05/12/19 05/22/19 Unknown Rx 0.1% Ointment] Rivaroxaban [Xarelto] 20 mg PO DAILY@0600 #30 tab 05/23/19 Unknown Rx - History of Present Illness -Gen Adult Nature of Presenting Problems: 83 y/o female presents to ED via EMS with cc of fever and UTI. EMS reports family was sitting in living room, did not provide any additional information, and had obviously been sitting in her stool/urine for a while. Pt states she is experiencing diffuse abdominal pain, N/V/D, and headache. Pt is alert and oriented x 1. Location of Pain/Injury: reports: head, abdomen Pain Radiation: reports: no radiation Quality of Pain: reports: aching Severity: reports: mild Onset/Duration: reports: unsure Timing: reports: still present Context/Activities at Onset: reports: none Modifying Factors: improves with: nothing Associated Symptoms: reports: diarrhea, fever/chills, nausea, vomiting, other (diffuse abdominal pain) Similar Symptoms Previously?: No Recently seen or treated by another doctor?: No Review of Systems - Adult - REVIEW OF SYSTEMS - ADULT ROS:: limited per condition Constitutional: reports: fever. denies: chills Eyes: reports: no symptoms reported Ears, Nose, Mouth & Throat: reports: no symptoms reported Cardiovascular: denies: chest pain, palpitations Respiratory: denies: cough, shortness of breath Gastrointestinal: reports: abdominal pain, diarrhea, nausea, vomiting Genitourinary: reports: no symptoms reported Musculoskeletal: denies: back pain, joint pain Integumentary: reports: no symptoms reported Neurological: reports: headache/migraines. denies: dizziness/vertigo, seizure Psychiatric: reports: no symptoms reported Endocrine: reports: no symptoms reported Hematologic/Lymphatic: reports: no symptoms reported Allergic/Immunologic: reports: no symptoms reported All Other Systems: Reviewed and Negative Past History - Adult - PAST MEDICAL HISTORY-ADULT Review of Records: reports: Old Records Reviewed, Nursing Assessment Review, Medications Reviewed Major Childhood Illnesses: reports: denies history Cardiovascular: reports: CHF, HTN, hyperlipidemia, [place], pacemaker Respiratory: reports: sleep apnea Genitourinary: reports: dialysis (stopped 3 years prior per pt), ESRD, kidney disease Musculoskeletal: reports: osteoporosis Neurological: reports: other (spina bifada; spinal stenosis) Endocrine/Immune: reports: Diabetes Other Conditions: reports: cataract/glaucoma - PRIOR SURGERIES/PROCEDURES Surgical/Procedure History: reports: cholecystectomy, pacemaker, hysterectomy, tonsillectomy, hernia repair, orthopedic (extremity) (carpal tunnel), joint replacement (TKR), breast (biopsy), other (cataract removal; kidney stent; lithrotripsy) - IMMUNIZATION STATUS Childhood Immunizations: See Nurse Assessment Flu Vaccine: See Nurse Assessment - FAMILY HISTORY Family History: reviewed, not pertinent - SOCIAL HISTORY Smoking: greater than 1 pack/day Provider spent 3-5 mins advising pt. on dangers of tobacco.: Discussed manners to quit use, and f/u contacts for add'l counseling. Substance Use: none/never Alcohol Use Frequency: never Living Situation: family Physical Exam-General - PHYSICAL EXAM-ADULT Initial Vital Signs Reviewed: Yes - CONSTITUTIONAL General Appearance: appears well, alert, no apparent distress - EYES Eyes: PERRL/EOMI, pale conjunctivae - HEAD, EARS, NOSE, MOUTH & THROAT HENMT: normocephalic/atraumatic, normal ENT inspection, other (dry coated tongue). negative: moist mucous membranes (dry) - NECK Neck: non-tender, full range of motion - RESPIRATORY Respiratory: chest non-tender, lungs clear, normal breath sounds - CARDIOVASCULAR Cardiovascular: tachycardia - GASTROINTESTINAL (ABDOMEN) Abdominal Exam: normal bowel sounds, soft, tenderness (diffuse) - GENITOURINARY Female Genitalia/Pelvic Exam: other (pt sitting in diaper soiled with stool and urine) - MUSCULOSKELETAL Back Exam: normal inspection, no CVA tenderness, no vertebral tenderness Extremity: normal range of motion, non-tender, swelling (1 + pitting edema of bilateral lower extremities), other (ecchymosis to bilateral knees/upper extrem ities; stasis dermatitis of bilateral lower extremities) - SKIN Integumentary: normal color, warm/dry, ecchymosis (bilateral knees/upper extremities), swelling (1 + pitting edema of bilateral lower extremities), other (stasis dermatitis of bilateral lower extremities) - NEUROLOGIC Neurologic: grossly normal - PSYCHIATRIC Psych/Mental Status: normal mood/affect Progress - PLAN OF CARE/RESULTS Progress/Plan/Lab Results: Vital Signs - 8 hr 06/24/19 12:13 Temperature 100.8 F H Pulse Rate 96 H Respiratory Rate 32 H Blood Pressure 154/90 O2 Sat by Pulse Oximetry 93 L Orders Category Date Time Status Cardiac Monitoring DIRECTED Care 06/24/19 12:12 Active IV Insertion ORDERED Care 06/24/19 12:12 Active Notify MD of + Sepsis Screen NOW Care 06/24/19 12:12 Active Notify Physician As Ordered Care 06/24/19 12:12 Active CHEST-1 VIEW [RAD] Stat Exams 06/24/19 12:12 Ordered BLOOD CULTURE [BLDCUL] Stat Lab 06/24/19 12:12 Ordered CBC WITH DIFF [HEME] Stat Lab 06/24/19 12:12 Ordered CK PROFILE [SP CHEM] Stat Lab 06/24/19 12:12 Ordered COMPREHENSIVE METABOLIC PANEL [CHEM] Stat Lab 06/24/19 12:12 Ordered LACTATE, PLASMA [CHEM] Q3H Lab 06/24/19 12:13 Ordered LACTATE, PLASMA [CHEM] Q3H Lab 06/24/19 15:15 Uncollected LACTATE, PLASMA [CHEM] Q3H Lab 06/24/19 18:15 Uncollected PROTIME WITH INR [COAG] Stat Lab 06/24/19 12:12 Ordered PTT [COAG] Stat Lab 06/24/19 12:12 Uncollected TROPONIN T Stat Lab 06/24/19 12:[address] W/POSS RFLX CULT [URINALYSIS] Stat Lab 06/24/19 12:12 Un collected Oxygen Device Stat Oth 06/24/19 12:12 Active Laboratory Tests 06/24/19 06/24/19 06/24/19 12:10 12:10 12:10 WBC 13.83 H RBC 4.68 Hgb 13.5 Hct 38.9 MCV 83.1 MCH 28.8 MCHC 34.7 RDW Std Deviation 14.4 Plt Count 167 MPV 9.9 Immature Gran % (Auto) 0.5 Neut % (Auto) 87.8 H Lymph % (Auto) 1.3 L Berks % (Auto) 10.3 H Eos % (Auto) 0.0 Baso % (Auto) 0.1 Immature Gran # (Auto) 0.07 H Neut # (Auto) 12.14 H Lymph # (Auto) 0.18 L Berks # (Auto) 1.42 H Eos # (Auto) 0.00 Baso # (Auto) 0.02 PT 31.6 H INR 2.89 PTT (Actin FS) Sodium 132 L Potassium 3.1 L Chloride 96 L Carbon Dioxide 23 L Anion Gap 14 BUN 19 Creatinine 1.0 H Estimated GFR/1.73 m2 53 BUN/Creatinine Ratio 19 Glucose 163 H Calculated Osmolality 270 Calcium 8.1 L Total Bilirubin 1.10 H AST 18 ALT 6 L Alkaline Phosphatase 102 Creatine Kinase 19 L Troponin T Total Protein 6.3 Albumin 3.1 L Globulin 3.0 Albumin/Globulin Ratio 1.0 Plasma Lactate Urine Source Urine Color Urine Clarity Urine pH Ur Specific Holland Urine Protein Urine Ketones Urine Blood Urine Nitrite Urine Bilirubin Urine Urobilinogen Urine Microscopic RBC Urine WBC Urine Microscopic WBC Ur Epithelial Cells Urine Crystals Urine Bacteria Urine Casts Urine Yeast Urine Glucose 06/24/19 06/24/19 06/24/19 12:10 12:47 12:50 WBC RBC Hgb Hct MCV MCH MCHC RDW Std Deviation Plt Count MPV Immature Gran % (Auto) Neut % (Auto) Lymph % (Auto) Berks % (Auto) Eos % (Auto) Baso % (Auto) Immature Gran # (Auto) Neut # (Auto) Lymph # (Auto) Berks # (Auto) Eos # (Auto) Baso # (Auto) PT INR PTT (Actin FS) 38.3 Sodium Potassium Chloride Carbon Dioxide Anion Gap BUN Creatinine Estimated GFR/1.73 m2 BUN/Creatinine Ratio Glucose Calculated Osmolality Calcium Total Bilirubin AST ALT Alkaline Phosphatase Creatine Kinase Troponin T 0.012 Total Protein Albumin Globulin Albumin/Globulin Ratio Plasma Lactate 1.5 Urine Source Urine Color Urine Clarity Urine pH Ur Specific [place] Urine Protein Urine Ketones Urine Blood Urine Nitrite Urine Bilirubin Urine Urobilinogen Urine Microscopic RBC Urine WBC Urine Microscopic WBC Ur Epithelial Cells Urine Crystals Urine Bacteria Urine Casts Urine Yeast Urine Glucose 06/24/19 13:08 WBC RBC Hgb Hct MCV MCH MCHC RDW Std Deviation Plt Count MPV Immature Gran % (Auto) Neut % (Auto) Lymph % (Auto) Berks % (Auto) Eos % (Auto) Baso % (Auto) Immature Gran # (Auto) Neut # (Auto) Lymph # (Auto) Berks # (Auto) Eos # (Auto) Baso # (Auto) PT INR PTT (Actin FS) Sodium Potassium Chloride Carbon Dioxide Anion Gap BUN Creatinine Estimated GFR/1.73 m2 BUN/Creatinine Ratio Glucose Calculated Osmolality Calcium Total Bilirubin AST ALT Alkaline Phosphatase Creatine Kinase Troponin T Total Protein Albumin Globulin Albumin/Globulin Ratio Plasma Lactate Urine Source CATH Urine Color YELLOW Urine Clarity VERY CLOUDY A Urine pH 7.0 Ur Specific Holland 1.005 Urine Protein 1+(30 mg/dL) A Urine Ketones NEGATIVE Urine Blood 4+ Urine Nitrite POSITIVE A Urine Bilirubin NEGATIVE Urine Urobilinogen NORMAL Urine Microscopic RBC TNTC A Urine WBC 1+ A Urine Microscopic WBC TNTC A Ur Epithelial Cells <10 Urine Crystals NONE SEEN Urine Bacteria 2+ Urine Casts NONE SEEN Urine Yeast NONE SEEN Urine Glucose NEGATIVE Result Diagrams: 06/24/19 12:10 06/24/19 12:10 - XRAY 1 XRAY Study: Chest Impression: See EMR Report ([facility] - [address] , [address], [place] [address] [facility] - [address] [place] [address] Department of Imaging Patient: PUSHPA LOWE Date: 06/24/19#: [id number] : 1935DM [id number] Age/Sex: 83/FRoom/Bed: Loc: P.ED Ordering Physician: Darren Gustafson MD Family Physician: None,PCP Reason for Procedure: sepsis Signed CHEST-1 VIEW - 06/24/2019 INDICATION: sepsis COMPARISON: 05/23/2019 FINDINGS: The lungs are normally expanded and clear. Heart size and mediastinal contours are normal. No pneumothorax or pleural effusion. IMPRESSION: Negative exam. Electronically signed by Eric Cannon 06/24/2019 1:46 PM 06/24/19 1346 Interpreting Physician: Eric Cannon MD Dictated Date/Time: 06/24/19 134 cc: Darren Gustafson MD; None,PCP) - CONSULTS/PCP/HOSPITALIST Notification #1 *Consult/PCP/Hospitalist*: DIONISIO Guthrie for Dr. Manzanares Time Discussed: 14:06 Reason/Comments: Sepsis, UTI Consult Disposition: Admit Departure - Departure Date of Disposition Decision: 06/24/19 Time of Disposition Decision: 14:07 DIAGNOSIS: Tobacco use Sepsis Qualifiers: Sepsis type: sepsis due to unspecified organism Qualified Code(s): A41.9 - Sepsis, unspecified organism UTI (urinary tract infection) Qualifiers: Urinary tract infection type: site unspecified Hematuria presence: with hematu quinten Qualified Code(s): N39.0 - Urinary tract infection, site not specified; R31.9 - Hematuria, unspecified Disposition: ADMITTED INPATIENT 09 Certified Medical Emergency: Emergent Condition: Fair Referrals and Follow-Ups: None,PCP [Primary Care Provider] - Discharge Education: Steps to Quit Smoking, [id number] - Critical Care Note This patient required my direct & personal management of CC.: No Attestation - Physician/ PATRICIA Attestation Patient care was provided by Advanced Practice Provider:: No The physician spent face to face time with patient:: Yes Advanced Practice Provider documentation review:: Supervising physician onsite and consulted in the evaluation and care of this patient. The physician did have a face to face encounter with the patient. This chart was documented by the indicated scribe, (Betsy Ramires, Marjorie) and accurately reflects the services I performed and decisions made by me, Darren Gustafson MD, as attested by the provider's signature.
[2019-06-24] MEDS ORDERED: LEVAQUIN 500 MG/D5W 500 MG/100 ML IVPB IV ONE (15:03)
[2019-06-24] MEDS ORDERED: ZOFRAN IV PRN (15:13)
[2019-06-24] MEDS ORDERED: NS 1,000 ML IV SCH (17:45)
--- NOTE | 2019-06-24 18:28 | HISTORY AND PHYSICAL ---
CHIEF COMPLAINT: Fever and altered mental status. HISTORY OF PRESENT ILLNESS: This is an 83-year-old female with a history of frequent urinary tract infection, chronic kidney disease, diabetes mellitus, heart failure and hypertension. She presented to the emergency room via EMS complaining of fever and a urinary tract infection. According to EMS on their arrival, the family members were sitting in the living room next to the patient although they gave no history and the patient had been sitting in urine and stool for quite a while. In reviewing her records on May 31, Ms. Colon had a ESBL positive E coli UTI. Culture returned that was sensitive to Bactrim, nitrofurantoin and imipenem. She is on her 2nd prescription of Levaquin the 2nd being given after this culture resulted although this culture is negative it was resistant to Levaquin. She reports her UTI symptoms as urinary incontinence, generalized weakness and abdominal cramping. PAST MEDICAL HISTORY: 1. Congestive heart failure. 2. Diabetes mellitus. 3. Chronic kidney disease. 4. Hypertension. 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 SOCIAL HISTORY: She smokes 2 packs a day. Denies alcohol or illicit drug use. ALLERGIES: Indocin which causes nausea, vomiting, ketoprofen, meloxicam, Celebrex, Daypro, Feldene, Relafen that caused rash. HOME MEDICATIONS: A list will be obtained by the nursing staff and once verified will review and restart as appropriate. REVIEW OF SYSTEMS: Discussed with the patient who reports abdominal pain, some diarrhea over the last week, nausea, anorexia. She denied any syncope, dizziness, chest pain, palpitations, shortness of breath, cough, fever, chills, any black or bloody vomitus or stools, she denies any dysuria or hematuria. PHYSICAL EXAMINATION: GENERAL: This is an 83-year-old female who is lying on the stretcher in the emergency room in no distress. CARDIOVASCULAR: Regular rate and rhythm. S1 and S2 appreciated. She has no murmur. She does have bilateral pitting edema with peripheral pulses palpable x4. PULMONARY: Breath sounds are clear. No increased work of breathing noted. GASTROINTESTINAL: Abdomen is soft. She does have some diffuse tenderness primarily in the suprapubic area. Bowel sounds are positive in all 4 quadrants. : The patient has a Drummond draining clear yellow urine. She reportedly had on a diaper that was soiled with stool and urine on arrival to the ER. SKIN: Warm and dry. She does have bruises in various stages noted to her knees, upper extremities . thank you for tonight. LABS: WBC is 13.8 with hemoglobin 13.5, hematocrit 38.9 and platelets of 167,000. Sodium 132, potassium 3.1, BUN 19, creatinine 1 with a glucose of 163. Urine is nitrite positive with 4+ blood, too numerous to count microscopic red blood cells and white blood cells. This is a catheter specimen. Urine culture is pending. Chest x-ray revealed a negative exam. ASSESSMENT AND PLAN: 1. Urosepsis. 2. Recent extended spectrum beta-lactamase positive Escherichia coli urinary tract infection. 3. Diabetes mellitus. 4. Chronic kidney disease. 5. Hypertension. 6. Generalized weakness. 7. Leukocytosis. 8. Hypokalemia. PLAN: The patient will be admitted to the medical-surgical floor. She will be placed on telemetry for close monitoring pattern blood glucose a.c. and at bedtime, sliding scale insulin. gentle IV hydration as her mucous membranes continue to be dry after fluid replacement. Merrem 1 g every 12 hours and further antibiotics will be culture driven. CBC, CMP in the morning. Drummond catheter was placed in the emergency room. We will leave this intact. DVT prophylaxis will continue her Xarelto GI prophylaxis Prilosec. Discussed with Dr Manzanares. Further treatments pending hospital course. Dictated by DIONISIO Ho for Silver Manzanares MD cc: DIONISIO Ho MD [facility]
[2019-06-24] MEDS: MERREM 1 GM in NS 50 ML IV SCH (20:35)
[2019-06-25 06:43] LABS: BASO# 0.01 X1000 (0.0-0.2); BASO% 0.1 % (0.0-0.8); EOS# 0.01 X1000 (0.0-0.7); EOS% 0.1 % (0.0-10.0); HEMATOCRIT 36.2 % (37.0-47.0); HEMOGLOBIN 12.1 g/dL (12.0-16.0); IMM GRAN# 0.04 X1000 (0.0-0.04); IMM GRAN% 0.3 % (0.0-0.5); LYMPH# 0.44 X1000 (1.2-3.4); LYMPH% 3.8 % (20.5-51.1); MCH 28.3 PG (27-31); MCHC 33.4 g/dL (33-37); MCV 84.6 FL (81-99); MONO# 1.63 X1000 (0.11-0.59); MPV 10.6 FL (7.4-10.4); NEUT# 9.51 X1000 (1.4-6.5); NEUT% 81.7 % (42.2-75.2); PLT 152 X1000 (130-400); RBC 4.28 XMIL (4.2-5.4); RDW 14.4 % (11.5-14.5); WBC 11.64 X1000 (4.8-10.8)
[2019-06-25 07:07] LABS: ALBUMIN 2.4 g/dL (3.5-5.0); CALCIUM 7.6 mg/dL (8.8-10.2); POTASSIUM 2.8 mmol/L (3.5-5.1); TOTAL BILIRUBIN 0.7 mg/dL (0.20-1.00); TOTAL PROTEIN 5.2 g/dL (6.3-8.3)
[2019-06-25] MEDS: MERREM 1 GM in NS 50 ML IV SCH ×2 (09:49→20:11)
[2019-06-25] MEDS: DETROL LA PO SCH (11:00)
[2019-06-25] MEDS: ZOCOR PO SCH (11:00)
[2019-06-25] MEDS: LASIX PO SCH (11:01)
[2019-06-25] MEDS: FOLIC ACID PO SCH ×2 (11:01→20:12)
[2019-06-25] MEDS: ULORIC PO SCH (11:01)
[2019-06-25] MEDS: POTASSIUM CHLORIDE 20 MEQ/SWI 20 MEQ/100 ML IVPB IV SCH ×2 (11:02→16:53)
--- NOTE | 2019-06-25 11:34 | PROGRESS NOTE ---
DATE: 06/25/2019 SUBJECTIVE: Patient notes that she is feeling a lot better. She denies any cough or congestion currently. overall she is feeling good. She states she is hungry this morning. PHYSICAL EXAMINATION: Vital Signs: Reviewed. Temperature 98 degrees, pulse 80, respiratory rate 18, BP 113/63, saturation 95% on 2 L. General: Patient is awake, alert, very pleasant. She is in no respiratory distress. HEENT: Normocephalic. Neck: Supple. Cardiovascular: Regular rate. No murmurs. Chest: Clear, nonlabored. Abdomen: Soft, obese, nondistended. Extremities: Moves all extremities. ASSESSMENT: 1. Gram-negative torin bacteremia. 2. Sepsis, resolved, likely secondary to a urinary source. 3. Urinary tract infection. 4. Chronic kidney disease. 5. Hypokalemia. Will replace. 6. Generalized weakness. 7. Metabolic encephalopathy, resolved. cc: Silver Manzanares MD MTDD
[2019-06-25] MEDS: VITAMIN D PO SCH (12:17)
[2019-06-25] MEDS: NUCYNTA PO SCH (12:17)
[2019-06-25] MEDS: MOVANTIK PO SCH ×2 (12:17→12:19)
[2019-06-25] MEDS: CALMOSEPTINE OINTMENT TOP PRN (15:39)
[2019-06-26 06:40] LABS: HEMOGLOBIN 12.6 g/dL (12.0-16.0); MCH 28.2 PG (27-31); MCHC 33.2 g/dL (33-37); MPV 10.7 FL (7.4-10.4); RBC 4.47 XMIL (4.2-5.4); RDW 14.5 % (11.5-14.5); WBC 7.83 X1000 (4.8-10.8)
[2019-06-26 06:59] LABS: ALBUMIN 2.5 g/dL (3.5-5.0); CREATININE 1.1 mg/dL (0.5-0.9); MAGNESIUM 1.4 mg/dL (1.5-2.7); TOTAL BILIRUBIN 0.6 mg/dL (0.20-1.00); TOTAL PROTEIN 5.1 g/dL (6.3-8.3)
[2019-06-26] MEDS: MOVANTIK PO SCH (08:50)
[2019-06-26] MEDS: MERREM 1 GM in NS 50 ML IV SCH ×2 (08:50→20:14)
[2019-06-26] MEDS: ULORIC PO SCH (08:50)
[2019-06-26] MEDS: ZOCOR PO SCH (08:50)
[2019-06-26] MEDS: NUCYNTA PO SCH (08:51)
[2019-06-26] MEDS: FERROUS SULFATE PO SCH (08:52)
[2019-06-26] MEDS: DETROL LA PO SCH (08:52)
[2019-06-26] MEDS: FOLIC ACID PO SCH ×2 (08:52→20:19)
--- NOTE | 2019-06-26 21:01 | PROGRESS NOTE ---
DATE: 06/26/2019 SUBJECTIVE: The patient states that she is feeling tremendously better today. She has no complaints. Notes that mentally she feels better, and physically she feels stronger than she has in quite some time. PHYSICAL EXAMINATION: Vital Signs: Temperature 98 degrees, pulse 92, respiratory rate 18, BP 138/87. General: Patient is very pleasant. She is in no distress. Her color is much improved. Her mental status is much improved. HEENT: Normocephalic. Neck: Supple. Cardiovascular: Regular rate. Chest: Clear and unlabored. Abdomen: Soft and nondistended. Extremities: Moves all extremities. ASSESSMENT: 1. Extended-spectrum beta lactamase positive Escherichia coli urinary tract infection. 2. Extended-spectrum beta lactamase positive Escherichia coli bacteremia, currently on Merrem. 3. Hypokalemia. 4. Diabetes. 5. Chronic kidney disease. 6. Generalized weakness, improved. 7. Leukocytosis, resolved. PLAN: We will continue patient in the hospital on Merrem. We will recheck labs as well as blood culture in the a.m., and will follow. Continue physical therapy as needed. cc: Silver Manzanares MD
[2019-06-27 07:26] LABS: HEMATOCRIT 36.2 % (37.0-47.0); HEMOGLOBIN 11.9 g/dL (12.0-16.0); MCH 27.7 PG (27-31); MCHC 32.9 g/dL (33-37); MCV 84.4 FL (81-99); RBC 4.29 XMIL (4.2-5.4); RDW 14.4 % (11.5-14.5); WBC 5.85 X1000 (4.8-10.8)
[2019-06-27 07:44] LABS: ALBUMIN 2.1 g/dL (3.5-5.0); CALCIUM 7.9 mg/dL (8.8-10.2); CREATININE 0.9 mg/dL (0.5-0.9); MAGNESIUM 1.4 mg/dL (1.5-2.7); POTASSIUM 3.1 mmol/L (3.5-5.1); TOTAL BILIRUBIN 0.5 mg/dL (0.20-1.00); TOTAL PROTEIN 4.8 g/dL (6.3-8.3)
[2019-06-27] MEDS ORDERED: LOPRESSOR IV ONE (08:38)
[2019-06-27] MEDS ORDERED: POTASSIUM CHLORIDE 20% LIQUID PO ONE ×2 (08:44)
[2019-06-27] MEDS ORDERED: MAGNESIUM SULFATE 4 GM/S.W.I. 4 GM/100 ML IVPB IV ONE (08:45)
[2019-06-27] MEDS: VITAMIN B-12 PO SCH (08:58)
[2019-06-27] MEDS: MERREM 1 GM in NS 50 ML IV SCH (08:58)
[2019-06-27] MEDS: ULORIC PO SCH (08:58)
[2019-06-27] MEDS: LASIX PO SCH (08:59)
[2019-06-27] MEDS: DETROL LA PO SCH (08:59)
[2019-06-27] MEDS: MOVANTIK PO SCH (08:59)
[2019-06-27] MEDS: KLOR-CON PO SCH (08:59)
[2019-06-27] MEDS: FERROUS SULFATE PO SCH (08:59)
[2019-06-27] MEDS: ZOCOR PO SCH (08:59)
[2019-06-27] MEDS: ASPIRIN EC PO SCH (08:59)
[2019-06-27] MEDS: NUCYNTA PO SCH (08:59)
[2019-06-27] MEDS: LOPRESSOR PO SCH ×2 (09:00→20:43)
[2019-06-27] MEDS: FOLIC ACID PO SCH ×2 (09:00→20:43)
--- NOTE | 2019-06-27 12:26 | EKG Report ---
Test Performed on : 06/27/2019 08:45:43 AM Test Reason : afib with rvr Blood Pressure : / mmHG Vent. Rate : 127 BPM Atrial Rate : 381 BPM P-R Int : 000 ms QRS Dur : 090 ms QT Int : 306 ms P-R-T Axes : 000 024 161 degrees QTc Int : 444 ms Atrial flutter. with variable AV block. Nonspecific ST and T wave abnormality Abnormal ECG When compared with ECG of 23-MAY-2019 06:57, Atrial flutter. has replaced Atrial fibrillation. Vent. rate has increased BY 54 BPM T wave inversion now evident in Lateral leads Confirmed by Darren Gustafson MD ([id number]) on 06/28/2019 9:37:06 PM
[2019-06-27] MEDS: INVANZ 1 GM/NS 1 GM/50 ML IVPB IV SCH (13:52)
--- NOTE | 2019-06-27 13:53 | PROGRESS NOTE ---
DATE: 06/27/2019 SUBJECTIVE: Patient reports feeling fine. Denies any fever or chills. OBJECTIVE: Vital Signs: Temperature 97.8 degrees, heart rate 100, respiratory rate 18, blood pressure 110/72 and O2 saturation 97% on room air. General: This is a 89-year-old female lying in bed in no acute distress. Cardiovascular: S1, S2 heard. No murmurs, gallops, or rubs. Regular rate and rhythm. Respiratory: Clear bilaterally to auscultation. No work of breathing or using accessory muscles. Abdomen: Soft, nontender to palpation. Bowel sounds present. No organomegaly. Extremities: No clubbing, cyanosis, or edema. Peripheral pulses present in both legs. Neurological: Patient is alert and oriented x3. Moves all 4 extremities. LABORATORY DATA: CBC is okay. BMP shows potassium 3.1 with normal creatinine. Blood sugar 161. ASSESSMENT AND PLAN: 1. ESBL E. Coli bacteremia/urinary tract infection. Patient is on meropenem. White cell count is back to normal. At this point, we are going to repeat blood cultures to make sure that we are eradicating that infection. We have to switch to Invanz in order to make the administration of this medication better because the Invanz medication is given q.24 hours. The patient needs to go to rehab facility, but unfortunately the fact that because of the cost of Invanz is very high, is definitely precluding this patient to go to any rehab facility so in that regard, we are going to talk with social media coordinator about it, and see what we can do for this patient. In the meantime, we will continue with the same management. 2. Hypokalemia. We will replenish potassium today. 3. Diabetes mellitus type 2. We will continue with sliding scale insulin, Accu- Chek before meals, and also at bedtime. 4. Acute kidney injury resolved. 5. General weakness improved. Patient working with physical therapy. 6. Disposition. We will continue to monitor this patient closely. We will continue working with physical therapy. cc: Naeem Morales MD [facility]
[2019-06-27] MEDS: COLACE PO SCH (20:43)
[2019-06-28] MEDS: MOVANTIK PO SCH (07:45)
[2019-06-28] MEDS: KLOR-CON PO SCH (09:38)
[2019-06-28] MEDS: VITAMIN B-12 PO SCH (09:38)
[2019-06-28] MEDS: ASPIRIN EC PO SCH (09:38)
[2019-06-28] MEDS: LOPRESSOR PO SCH ×2 (09:38→20:23)
[2019-06-28] MEDS: FERROUS SULFATE PO SCH (09:38)
[2019-06-28] MEDS: NUCYNTA PO SCH (09:39)
[2019-06-28] MEDS: FOLIC ACID PO SCH ×2 (09:39→20:23)
[2019-06-28] MEDS: DETROL LA PO SCH (09:39)
[2019-06-28] MEDS: ULORIC PO SCH (09:39)
[2019-06-28 11:08] LABS: HEMOGLOBIN 12.4 g/dL (12.0-16.0); IMM GRAN# 0.09 X1000 (0.0-0.04); RDW 14.4 % (11.5-14.5)
[2019-06-28 11:10] LABS: BASO# 0.03 X1000 (0.0-0.2); BASO% 0.3 % (0.0-0.8); EOS# 0.11 X1000 (0.0-0.7); EOS% 1.2 % (0.0-10.0); HEMATOCRIT 37.5 % (37.0-47.0); LYMPH# 0.88 X1000 (1.2-3.4); LYMPH% 9.8 % (20.5-51.1); MCH 28.1 PG (27-31); MCHC 33.1 g/dL (33-37); MCV 84.8 FL (81-99); MONO# 1.04 X1000 (0.11-0.59); MONO% 11.6 % (1.7-9.3); MPV 10.7 FL (7.4-10.4); NEUT% 76.1 % (42.2-75.2); PLT 201 X1000 (130-400); RBC 4.42 XMIL (4.2-5.4); WBC 8.95 X1000 (4.8-10.8)
[2019-06-28 11:33] LABS: CALCIUM 7.7 mg/dL (8.8-10.2)
--- NOTE | 2019-06-28 11:43 | PROGRESS NOTE ---
DATE: 06/28/2019 SUBJECTIVE: Patient reports feeling fine. Denies any fever, chills, or any dysuria. OBJECTIVE: Vital Signs: Temperature 97.7 degrees, heart rate 94, respiratory 14, blood pressure 124/81, and O2 saturation 98% on room air. General: This is a chronically ill-appearing 83-year- old female lying in bed in no acute distress. Cardiovascular: S1, S2 heard. No murmurs, gallops, or rubs. Regular rate and rhythm. Respiratory: Clear bilaterally to auscultation. No work of breathing or using accessory muscles. Abdomen: Soft. Nontender to palpation. Bowel sounds present. No organomegaly. Extremities: No clubbing, cyanosis, or edema. Peripheral pulses present in both legs. Neurological: Patient alert and oriented x3. Moves all 4 extremities. LABORATORY DATA: Still pending at time of dictation. ASSESSMENT AND PLAN: 1. ESBL E. Coli bacteremia/urinary tract infection. The patient is currently on Invanz. We have repeated blood cultures yesterday, and those are negative. If those continues to be negative, 06/27 will be the first day of antibiotics. This patient will need actually 14 days of this. I have talked with social workers about this antibiotic. Unfortunately, it is very expensive for a rehab facility to provide to the patient so until we get a place for her she will stay in the hospital receiving this medication. 2. Hypokalemia. We replenished potassium yesterday, but we are still waiting for BMP to see if she will need more potassium. 3. Diabetes mellitus type 2. We will continue with sliding scale insulin. Accu-Chek before meals and also at bedtime. 4. Acute kidney injury resolved. 5. General weakness. Improved. Patient is working with physical therapy. 6. Disposition. As we mentioned above, the problem is antibiotic that this patient requires for ESBL E. Coli bacteremia. We will continue with Invanz to complete 14 days of antibiotics. Today is day #2 of treatment if blood cultures return negative. cc: Naeem Morales MD
[2019-06-28] MEDS: INVANZ 1 GM/NS 1 GM/50 ML IVPB IV SCH (13:55)
--- NOTE | 2019-06-28 15:20 | Extremity Venous Study ---
EXAM: Venous U/S Bilateral Legs HISTORY: dvt left leg TECHNIQUE: Marcano scale, color Doppler, and duplex evaluation was performed. COMPARISON: None. FINDINGS: The deep veins of the bilateral lower extremities demonstrate appropriate compressibility and augmentation. No intraluminal thrombus is visualized. There is no evidence for DVT. The superficial veins appear patent. IMPRESSION: No evidence for deep venous thrombosis bilateral lower extremities. Electronically signed by Blanche Ortiz 06/28/2019 3:18 PM
[2019-06-28] MEDS: XARELTO PO SCH (16:59)
[2019-06-28] MEDS: COLACE PO SCH (20:23)
[2019-06-28] MEDS: ZOCOR PO SCH (20:23)
[2019-06-29] MEDS: MOVANTIK PO SCH (05:59)
[2019-06-29 06:50] LABS: BASO# 0.02 X1000 (0.0-0.2); BASO% 0.3 % (0.0-0.8); EOS# 0.19 X1000 (0.0-0.7); EOS% 2.8 % (0.0-10.0); HEMATOCRIT 34.3 % (37.0-47.0); HEMOGLOBIN 11.2 g/dL (12.0-16.0); IMM GRAN# 0.07 X1000 (0.0-0.04); LYMPH# 1.33 X1000 (1.2-3.4); LYMPH% 19.9 % (20.5-51.1); MCH 27.9 PG (27-31); MCHC 32.7 g/dL (33-37); MCV 85.5 FL (81-99); MONO# 0.94 X1000 (0.11-0.59); MONO% 14.1 % (1.7-9.3); MPV 10.8 FL (7.4-10.4); NEUT# 4.12 X1000 (1.4-6.5); NEUT% 61.9 % (42.2-75.2); PLT 199 X1000 (130-400); RBC 4.01 XMIL (4.2-5.4); RDW 14.3 % (11.5-14.5); WBC 6.67 X1000 (4.8-10.8)
[2019-06-29 07:50] LABS: CALCIUM 7.7 mg/dL (8.8-10.2); CREATININE 0.9 mg/dL (0.5-0.9); POTASSIUM 3.9 mmol/L (3.5-5.1)
[2019-06-29 11:02] LABS: INR 2.01; PROTIME 23.7 Seconds (11.0-16.0)
[2019-06-29] MEDS: DETROL LA PO SCH (11:08)
[2019-06-29] MEDS: NUCYNTA PO SCH (11:09)
[2019-06-29] MEDS: FOLIC ACID PO SCH ×2 (11:09→20:07)
[2019-06-29] MEDS: ULORIC PO SCH (11:09)
[2019-06-29] MEDS: LASIX PO SCH (11:10)
[2019-06-29] MEDS: LOPRESSOR PO SCH ×2 (11:10→20:07)
[2019-06-29] MEDS: VITAMIN B-12 PO SCH (11:10)
[2019-06-29] MEDS: FERROUS SULFATE PO SCH (11:10)
[2019-06-29] MEDS: KLOR-CON PO SCH (11:10)
[2019-06-29] MEDS: ASPIRIN EC PO SCH (11:11)
--- NOTE | 2019-06-29 11:13 | PROGRESS NOTE ---
DATE: 06/29/2019 SUBJECTIVE: Patient reports feeling fine. Denies any fever or chills. OBJECTIVE: Vital Signs: Temperature 98.2 degrees, heart rate 75, respiratory rate 20, blood pressure 117/62, O2 saturation 96% on room air. General Examination: This is a chronically ill- appearing, 83-year-old female, lying in bed in no acute distress. Cardiovascular exam: S1, S2 heard. No murmurs, gallops, or rubs. Regular rate and rhythm. Respiratory exam: Clear bilaterally to auscultation. No work of breathing or using accessory muscles. Abdomen: Soft, nontender to palpation. Bowel sounds present. No organomegaly. Extremities: No clubbing, cyanosis, or edema. Peripheral pulses present in both legs. Neurological exam: Patient is alert and oriented x3. Moves 4 extremities. LABORATORY DATA: Reviewed. ASSESSMENT AND PLAN: 1. Extended spectrum beta lactamase Escherichia coli bacteremia/urinary tract infection. The patient will continue with Invanz. We have repeated blood cultures the day before yesterday; those are negative. So, because those continue to be negative, today is day #3 of antibiotics. The patient will require 14 days of total antibiotics. We are going to consult PICC line team, but because patient is on Xarelto, we are going to hold that medication and try to get that PICC line placed tomorrow. 2. Hypokalemia, resolved. 3. Diabetes mellitus type 2. We will continue with sliding scale insulin and Accu-Chek before meals and also at bedtime. 4. Acute kidney injury, resolved. 5. General weakness, improved. Patient is working with physical therapy. 6. Disposition: At this point, family apparently request for her to be transferred to a rehab facility in [place]. If that is not possible, we will try to look for [facility]. In any case, we will continue with the current treatment. cc: Naeem Morales MD
[2019-06-29] MEDS ORDERED: NS 250 ML ONE (13:21)
--- NOTE | 2019-06-29 15:33 | Diag Imaging Result Doc PS360 ---
EXAM: CHEST-PORTABLE - 06/29/2019 HISTORY: picc placement TECHNIQUE: Portable chest COMPARISON: 06/24/2019 FINDINGS: There has been interval insertion of PICC from the left, with its tip at the expected location of the distal superior vena cava. Heart size is normal. There is apparent calcified mitral valve annulus. The lungs appear clear. There is no pleural effusion or pneumothorax identified. IMPRESSION: Tip of PICC at distal superior vena cava. No evidence of acute disease. Electronically signed by José Miguel Peoples 06/29/2019 3:31 PM
[2019-06-29] MEDS: INVANZ 1 GM/NS 1 GM/50 ML IVPB IV SCH (15:55)
[2019-06-29] MEDS: COLACE PO SCH (20:07)
[2019-06-29] MEDS: ZOCOR PO SCH (20:07)
[2019-06-30] MEDS: MOVANTIK PO SCH (06:02)
[2019-06-30 06:08] LABS: BASO# 0.04 X1000 (0.0-0.2); BASO% 0.5 % (0.0-0.8); EOS# 0.33 X1000 (0.0-0.7); EOS% 4.5 % (0.0-10.0); HEMATOCRIT 35.5 % (37.0-47.0); HEMOGLOBIN 11.3 g/dL (12.0-16.0); IMM GRAN# 0.12 X1000 (0.0-0.04); IMM GRAN% 1.6 % (0.0-0.5); LYMPH# 1.51 X1000 (1.2-3.4); LYMPH% 20.6 % (20.5-51.1); MCH 27.2 PG (27-31); MCHC 31.8 g/dL (33-37); MCV 85.5 FL (81-99); MONO# 1.05 X1000 (0.11-0.59); MONO% 14.3 % (1.7-9.3); MPV 10.4 FL (7.4-10.4); NEUT# 4.29 X1000 (1.4-6.5); NEUT% 58.5 % (42.2-75.2); PLT 240 X1000 (130-400); RBC 4.15 XMIL (4.2-5.4); RDW 14.3 % (11.5-14.5); WBC 7.34 X1000 (4.8-10.8)
[2019-06-30 06:17] LABS: CREATININE 0.9 mg/dL (0.5-0.9); POTASSIUM 4.2 mmol/L (3.5-5.1)
[2019-06-30] MEDS: NUCYNTA PO SCH (09:07)
[2019-06-30] MEDS: DETROL LA PO SCH (09:08)
[2019-06-30] MEDS: ASPIRIN EC PO SCH (09:08)
[2019-06-30] MEDS: FOLIC ACID PO SCH ×2 (09:08→20:43)
[2019-06-30] MEDS: KLOR-CON PO SCH (09:08)
[2019-06-30] MEDS: FERROUS SULFATE PO SCH (09:09)
[2019-06-30] MEDS: VITAMIN B-12 PO SCH (09:09)
[2019-06-30] MEDS: LOPRESSOR PO SCH ×2 (09:09→20:42)
[2019-06-30] MEDS: ULORIC PO SCH (09:10)
[2019-06-30 10:16] LABS: INR 1.01; PROTIME 13.8 Seconds (11.0-16.0)
[2019-06-30] MEDS: INVANZ 1 GM/NS 1 GM/50 ML IVPB IV SCH (12:45)
--- NOTE | 2019-06-30 13:00 | PROGRESS NOTE ---
DATE: 06/30/2019 SUBJECTIVE: The patient reports feeling fine. Denies any fever or chills. OBJECTIVE: Vital Signs: Temperature 97.9 degrees, heart rate 81, respiratory rate 18, blood pressure 135/80 O2 saturation 98% on room air. General Examination: This is a chronically ill- appearing 83-year-old female lying in bed, in no acute distress. Cardiovascular: S1, S2 heard. No murmurs, gallops, or rubs. Regular rate and rhythm. Respiratory: Clear bilaterally to auscultation. No work of breathing or using accessory muscles. Abdomen: Soft, nontender to palpation. Bowel sounds present. No organomegaly. Extremities: No clubbing, cyanosis, or edema. Peripheral pulses present in both legs. Neurological: Patient alert and oriented x3. Moves 4 extremities. LABORATORY DATA: Reviewed. ASSESSMENT/PLAN: 1. ESBL positive E. coli bacteremia/urinary tract infection. The patient continue with Invanz. The blood culture that we had done on June 27 was negative so that is the first day of the treatment, so today is day #4 for this medications so we are going to complete 14 days of total antibiotics. PICC line has been placed yesterday. We are going to resume Xarelto for her DVT. We will continue to monitor. 2. Hypokalemia, resolved. 3. Diabetes mellitus type 2. We will continue with sliding scale insulin and Accu-Chek before meals and also at bedtime. 4. Acute kidney injury, resolved. 5. General weakness, improved. Patient working with physical therapy. 6. Disposition. At this point, we are looking for a rehab facility in [place]. If that is not possible, we will try to look for [facility]. In any case, we will continue to provide antibiotics for this patient. Most likely she will be ready to go home Wednesday. cc: Naeem Morales MD [facility]
[2019-06-30] MEDS: XARELTO PO SCH (16:33)
[2019-06-30] MEDS: ZOCOR PO SCH (20:42)
[2019-06-30] MEDS: COLACE PO SCH (20:42)
[2019-07-01] MEDS: MOVANTIK PO SCH (06:04)
[2019-07-01 06:09] LABS: BASO# 0.06 X1000 (0.0-0.2); BASO% 0.8 % (0.0-0.8); IMM GRAN# 0.23 X1000 (0.0-0.04); IMM GRAN% 3.1 % (0.0-0.5); LYMPH# 1.67 X1000 (1.2-3.4); LYMPH% 22.2 % (20.5-51.1); MCH 27.8 PG (27-31); MCHC 32.4 g/dL (33-37); MCV 85.9 FL (81-99); MONO# 1.05 X1000 (0.11-0.59); MPV 10.1 FL (7.4-10.4); NEUT% 55.9 % (42.2-75.2); PLT 258 X1000 (130-400); RBC 3.96 XMIL (4.2-5.4); RDW 14.3 % (11.5-14.5); WBC 7.51 X1000 (4.8-10.8)
[2019-07-01 06:32] LABS: POTASSIUM 4.4 mmol/L (3.5-5.1)
[2019-07-01] MEDS: ULORIC PO SCH (08:09)
[2019-07-01] MEDS: ASPIRIN EC PO SCH (08:10)
[2019-07-01] MEDS: DETROL LA PO SCH (08:10)
[2019-07-01] MEDS: VITAMIN B-12 PO SCH (08:10)
[2019-07-01] MEDS: FOLIC ACID PO SCH ×2 (08:10→20:06)
[2019-07-01] MEDS: KLOR-CON PO SCH (08:11)
[2019-07-01] MEDS: NUCYNTA PO SCH (08:11)
[2019-07-01] MEDS: LOPRESSOR PO SCH ×2 (08:12→20:06)
[2019-07-01] MEDS: LASIX PO SCH (08:12)
[2019-07-01] MEDS: FERROUS SULFATE PO SCH (08:12)
--- NOTE | 2019-07-01 13:23 | PROGRESS NOTE ---
DATE: 07/01/2019 SUBJECTIVE: The patient reports feeling fine. She denies any fevers or chills. OBJECTIVE: Vital Signs: Temperature is 98.1, heart rate 73, respiratory rate 16, blood pressure 136/47, and O2 saturation 97% on room air. General: This is a chronically ill-appearing 83-year- old female lying in bed in no acute distress. Cardiovascular: S1 and S2 are heard. No murmurs, gallops, or rubs. Regular rate and rhythm. Respiratory: Clear bilaterally to auscultation. No work of breathing or use of accessory muscles. Abdomen: Soft and nontender to palpation. Bowel sounds present. No organomegaly. Extremities: No clubbing, cyanosis, or edema. Peripheral pulses are present in both legs. Neurological: The patient is alert and oriented times 3 and moves all extremities. LABORATORY DATA: Reviewed. ASSESSMENT AND PLAN: 1. Escherichia coli bacteremia/urinary tract infection. The patient continues to be on Invanz. Today is day #5 of that medication. She has had a PICC line placed. The plan is the following: The patient refused to go to any rehab facility in [place] recommended by her daughter. She is awake and alert and able to make decisions so [facility] At this point, we will continue to monitor this patient and on Wednesday we will inform the [facility] about what her wishes are and we will try to send her that day. 2. Hypokalemia, resolved. 3. Diabetes mellitus type 2. Continue on sliding scale insulin and Accu-Cheks before meals and also at bedtime. 4. Acute kidney injury, resolved. 5. Generalized weakness, improving. We will continue with progressing physical therapy. DISPOSITION: At this point, as per the patient's request we will try to send her to [facility] next Wednesday. cc: Naeem Morales MD
[2019-07-01] MEDS: INVANZ 1 GM/NS 1 GM/50 ML IVPB IV SCH (13:30)
[2019-07-01] MEDS: XARELTO PO SCH (16:08)
[2019-07-01] MEDS: CALMOSEPTINE OINTMENT TOP PRN (16:08)
[2019-07-01] MEDS: COLACE PO SCH (20:06)
[2019-07-01] MEDS: ZOCOR PO SCH (20:07)
[2019-07-02] MEDS: MOVANTIK PO SCH (06:03)
[2019-07-02] MEDS: FERROUS SULFATE PO SCH (08:13)
[2019-07-02] MEDS: DETROL LA PO SCH (08:13)
[2019-07-02] MEDS: NUCYNTA PO SCH (08:13)
[2019-07-02] MEDS: KLOR-CON PO SCH (08:13)
[2019-07-02] MEDS: FOLIC ACID PO SCH ×2 (08:13→20:04)
[2019-07-02] MEDS: ASPIRIN EC PO SCH (08:13)
[2019-07-02] MEDS: LOPRESSOR PO SCH ×2 (08:13→20:04)
[2019-07-02] MEDS: VITAMIN B-12 PO SCH (08:13)
[2019-07-02] MEDS: ULORIC PO SCH (08:14)
[2019-07-02] MEDS: VITAMIN D PO SCH (08:16)
--- NOTE | 2019-07-02 11:14 | PROGRESS NOTE ---
DATE: 07/02/2019 SUBJECTIVE: The patient reports feeling fine. Denies any fever or chills. OBJECTIVE: Vital Signs: Temperature 98.2 degrees, heart rate 89, respiratory rate 18, blood pressure 135/81, O2 saturation 98% on room air. General: This is a chronically ill-appearing, 83- year-old, female, lying in bed in no acute distress. Cardiovascular: S1, S2 heard. No murmurs, gallops, or rubs. Regular rate and rhythm. Respiratory: Clear bilaterally to auscultation. No work of breathing or using accessory muscles. Abdomen: Soft, nontender to palpation. Bowel sounds present. No organomegaly. Extremities: No clubbing, cyanosis, or edema. Peripheral pulses present in both legs. Neurological: The patient is alert and oriented x3. Moves all 4 extremities. LABORATORY DATA: Reviewed. ASSESSMENT AND PLAN: 1. Extended spectrum beta-lactamase Escherichia coli bacteremia/urinary tract infection. The patient continues to be on Invanz. Today is day #6 of that medication. The patient has a peripherally-inserted central catheter line placed. We are going to complete 14 days of antibiotic. Initially, the plan for this patient was to rehab facility in [place], but the patient was very clear that she does not want to go to [place], so she prefers to go to [facility]. The patient is medically stable, so will inform drug abuse social worker tomorrow that she can be discharged. Will double check with them if Invanz is going to be provided to her as well. 2. Hypokalemia, resolved. 3. Diabetes mellitus type 2. Will continue with sliding scale insulin and Accu- Cheks before meals and also at bedtime. 4. Acute kidney injury, resolved. 5. General weakness, improving. The patient is working with Physical Therapy. 6. Disposition. I think this patient is medically stable, so she can be sent to [facility] tomorrow. She needs to have 8 more days of intravenous antibiotics, in this case Invanz. cc: Naeem Morales MD [facility]
[2019-07-02] MEDS: INVANZ 1 GM/NS 1 GM/50 ML IVPB IV SCH (12:36)
[2019-07-02] MEDS: XARELTO PO SCH (18:29)
[2019-07-02] MEDS: ZOCOR PO SCH (20:04)
[2019-07-02] MEDS: COLACE PO SCH (20:04)
[2019-07-02] MEDS ORDERED: TYLENOL PO PRN (22:25)
[2019-07-03] MEDS: MOVANTIK PO SCH (06:02)
[2019-07-03 06:34] LABS: BASO# 0.06 X1000 (0.0-0.2); BASO% 0.9 % (0.0-0.8); EOS# 0.24 X1000 (0.0-0.7); EOS% 3.5 % (0.0-10.0); HEMATOCRIT 34.1 % (37.0-47.0); HEMOGLOBIN 10.8 g/dL (12.0-16.0); IMM GRAN# 0.22 X1000 (0.0-0.04); IMM GRAN% 3.2 % (0.0-0.5); LYMPH# 1.37 X1000 (1.2-3.4); LYMPH% 19.9 % (20.5-51.1); MCH 27.3 PG (27-31); MCHC 31.7 g/dL (33-37); MCV 86.3 FL (81-99); MONO# 1.13 X1000 (0.11-0.59); MONO% 16.4 % (1.7-9.3); MPV 10.2 FL (7.4-10.4); NEUT# 3.88 X1000 (1.4-6.5); NEUT% 56.1 % (42.2-75.2); PLT 253 X1000 (130-400); RBC 3.95 XMIL (4.2-5.4); RDW 14.3 % (11.5-14.5)
[2019-07-03 06:45] LABS: CALCIUM 8.1 mg/dL (8.8-10.2); CREATININE 1.1 mg/dL (0.5-0.9); POTASSIUM 4.4 mmol/L (3.5-5.1)
[2019-07-03] MEDS: VITAMIN B-12 PO SCH (08:03)
[2019-07-03] MEDS: KLOR-CON PO SCH (08:03)
[2019-07-03] MEDS: DETROL LA PO SCH (08:04)
[2019-07-03] MEDS: FERROUS SULFATE PO SCH (08:04)
[2019-07-03] MEDS: NUCYNTA PO SCH (08:04)
[2019-07-03] MEDS: FOLIC ACID PO SCH (08:04)
[2019-07-03] MEDS: LOPRESSOR PO SCH (08:04)
[2019-07-03] MEDS: LASIX PO SCH (08:04)
[2019-07-03] MEDS: ULORIC PO SCH (08:05)
[2019-07-03] MEDS: ASPIRIN EC PO SCH (08:05)
--- NOTE | 2019-07-03 12:35 | DISCHARGE SUMMARY ---
ADMISSION DATE: 06/24/2019 DISCHARGE DATE: 07/03/2019 CONSULTATIONS: None. PERTINENT PROCEDURES: Initial chest x-ray negative for exam. Lower extremity Doppler on the left with no evidence for DVT. DISCHARGE DIAGNOSES: 1. Extended-spectrum beta-lactamase Escherichia coli bacteremia urinary tract infection. The patient will continue on Invanz for 7 more days for a total of 14 days' antibiotic therapy. Initially, the patient was to be discharged to rehabilitation facility in [place]. However, this is not in the patient's insurance network, and she has been accepted at [facility] and will be discharged there today. 2. Hypokalemia, resolved. 3. Diabetes mellitus, type 2. Will continue her home regimen and diabetic diet. 4. Acute kidney injury, resolved. 5. Generalized weakness, improving. She will continue to work with Physical Therapy. 6. Congestive heart failure, stable. 7. Chronic kidney disease, back to baseline. 8. Hypertension. Continue home medications. 9. 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 On Xarelto. HOSPITAL COURSE: Briefly, Ms. Colon is an 83-year-old female who has a history of recurrent urinary tract infections, chronic kidney disease, diabetes mellitus, congestive heart failure, hypertension, and DVT to the subclavian and axillary area on Xarelto. EMS was called because the patient was complaining of a fever and a urinary tract infection. Upon arrival, they stated family members were in the living room next to the patient, and they felt that the patient had been sitting in urine and stool for quite a while. On review of her records on May 31, she had an ESBL-positive E coli urinary tract infection. Her culture returned sensitive to Bactrim, nitrofurantoin, and imipenem. She was on her 2nd prescription of Levaquin as well; however, after the culture resulted, it was resistant to Levaquin. She reported urinary incontinence, generalized weakness, and abdominal cramping. She also had a positive blood culture for E coli ESBL, as well. She was initiated on treatment with IV Invanz. She has been working with Physical Therapy throughout the course of her hospital stay, and she will need to complete 14 days of IV Invanz, and continue to work with Physical Therapy. Initially, the plan was to discharge her to a rehabilitation facility in [place]; however, it is outside her insurance network, and she will be discharged to [facility] today to continue with her antibiotic therapy and physical therapy. She is a DNR level 1. VITAL SIGNS: At the time of discharge, temperature is 97.3 degrees axillary, heart rate 80, respirations 21, blood pressure 139/71, O2 is 100% on room air. DISCHARGE DIET: Diabetic, soft. DISCHARGE MEDICATIONS: 1. Colace 100 mg p.o. at bedtime. 2. Aspirin 81 mg p.o. daily. 3. Detrol LA 4 mg p.o. daily. 4. Folic acid 1 mg p.o. b.i.d. 5. Lasix 20 mg p.o. every other day. 6. Lopressor 50 mg p.o. b.i.d. 7. Movantik 25 mg p.o. daily. 8. Prilosec 40 mg p.o. daily. 9. Uloric 40 mg p.o. daily. 10. Xarelto 20 mg p.o. daily. 11. Zocor 20 mg p.o. b.i.d. 12. Ferrous sulfate 325 mg p.o. with breakfast. 13. Nucynta 100 mg p.o. daily. 14. Vitamin B12, 1000 mcg p.o. daily. 15. Vitamin D2, 50,000 units p.o. 7 days. DISPOSITION: Ms. Colon is being discharged to [facility], where she will continue with physical therapy and complete 14 days of her IV Invanz. DISCHARGE INSTRUCTIONS: 1. She is take all medications as prescribed. 2. She can return to the ED or call 911 for any worsening of symptoms. 3. She is a DNR level 1. Dictated by DIONISIO Lockett for Silver Manzanares MD cc: Silver Manzanares MD
[2019-07-03] MEDS: INVANZ 1 GM/NS 1 GM/50 ML IVPB IV SCH (13:17)
[2019-07-03 14:19] VITALS: BP 144/81
--- NOTE | 2019-07-04 10:02 | DISCHARGE SUMMARY ---
ADMISSION DATE: 06/24/2019 DISCHARGE DATE: 07/03/2019 ADDENDUM: The patient was seen and examined by myself. Full note dictated and discussed with nurse practitioner. Patient presented to the hospital with metabolic encephalopathy. She ultimately grew ESBL positive E. coli in her blood as well as her urine. She was placed on Invanz. Thankfully, she had an uneventful hospital course with the exception of the fact that she needed IV antibiotics and ultimately needed physical therapy. Thankfully, on discharge, she is awake, alert. She is in no distress. She will be discharged to rehab. She has had a PICC line placed. She will continue antibiotics for a total of a 14 day course. cc: Silver Manzanares MD
== END 2019-07-03 17:16 | DRG 871 ==
LOC: P.ED 12:22 → SUATTDRO 16:21 → P.MEDSURG 16:21
PROVIDERS: ATTEND Family Medicine

== ENCOUNTER 2019-07-04 17:39 | Inpatient (IN) ==
[2019-07-04] MEDS ORDERED: NS 1,000 ML IV PRN (18:06)
[2019-07-04 18:38] LABS: BASO# 0.03 X1000 (0.0-0.2); BASO% 0.3 % (0.0-0.8); HEMATOCRIT 38.2 % (37.0-47.0); HEMOGLOBIN 12.5 g/dL (12.0-16.0); IMM GRAN# 0.19 X1000 (0.0-0.04); IMM GRAN% 1.6 % (0.0-0.5); LYMPH# 0.67 X1000 (1.2-3.4); LYMPH% 5.8 % (20.5-51.1); MCH 27.7 PG (27-31); MCHC 32.7 g/dL (33-37); MCV 84.7 FL (81-99); MONO# 0.58 X1000 (0.11-0.59); MPV 10.3 FL (7.4-10.4); NEUT# 10.06 X1000 (1.4-6.5); NEUT% 87.3 % (42.2-75.2); PLT 278 X1000 (130-400); RBC 4.51 XMIL (4.2-5.4); RDW 14.6 % (11.5-14.5); WBC 11.53 X1000 (4.8-10.8)
[2019-07-04 18:39] LABS: INR 1.45; PROTIME 18.4 Seconds (11.0-16.0); PTT 35.5 Seconds (22.3-41.8)
--- NOTE | 2019-07-04 18:45 | PROVIDER DOCUMENTATION ---
This chart was entered by Francine Balderas Scribe, acting as scribe for Marcelle Milligan MD. HPI-Neurological Disorder - General Source: family - History of Present Illness-Neuro Onset/Duration: reports: abrupt Timing: reports: improving Context: reports: seizure activity Character of Altered Mental Status: reports: confused, seizure activity Any recent trauma/injury?: reports: none New weakness or altered sensation location:: reports: none Cognitive Baseline: alert, oriented x3 Gait Baseline: uses a walker Associated Symptoms: reports: confusion, seizures Similar Symptoms Previously?: No Recently seen or treated by another doctor?: Yes - Seizure First time to have a seizure?: Yes Witnessed seizure?: Yes Episode Frequency: no prior episodes Status Epilepticus: No Preceding symptoms/context:: recent illness/fever Character of Seizure: reports: lost consciousness, generalized shaking all over Post-ictal Symptoms: reports: confusion Seizure related injury: none <Marcelle Milligan - Last Filed: 07/04/19 20:59> <Dayna Weiss - Last Filed: 07/05/19 04:40> - General Chief Complaint: Seizure Stated Complaint: SEIZURE Time Seen by Provider: 07/04/19 17:52 Allergies/Adverse Reactions: Patient Allergies Allergy/AdvReac Type Severity Reaction Status Date / Time indomethacin [From Indocin] Allergy NAUSEA/VOMI Verified 12/26/16 22:36 TING indomethacin sodium * Allergy NAUSEA/VOMI Verified 12/26/16 22:36 [From Indocin] TING ketoprofen [From Oruvail] Allergy RASH Verified 11/23/18 13:45 meloxicam [From Mobic] Allergy RASH Verified 12/26/16 22:36 propranolol HCl * Allergy RASH Verified 12/26/16 22:36 [From Inderal LA] celecoxib [From Celebrex] AdvReac Unknown Verified 11/23/18 13:45 etodolac AdvReac RASH Verified 11/23/18 13:45 nabumetone [From Relafen] AdvReac Unknown Verified 11/23/18 13:45 oxaprozin [From Daypro] AdvReac RASH Verified 11/23/18 13:45 piroxicam [From Feldene] AdvReac RASH Verified 11/23/18 13:45 Home Medications: Home Medication List Medication Instructions Recorded Confirmed Last Taken Type Aspirin EC 81 mg PO DAILY 01/07/16 07/05/19 05/04/19 History Febuxostat [Uloric] 40 mg PO DAILY 01/07/16 07/05/19 05/04/19 History Metoprolol Tartrate [Lopressor] 50 mg PO BID 01/07/16 07/05/19 05/04/19 21:00 History Naloxegol Oxalate [Movantik] 25 mg PO DAILY 01/07/16 07/05/19 05/04/19 09:00 History Tolterodine Tartrate [Detrol LA] 4 mg PO DAILY 01/07/16 07/05/19 05/04/19 09:00 History Simvastatin [Zocor] 20 mg PO DAILY 12/26/16 07/05/19 05/04/19 09:00 History Cyanocobalamin [Vitamin B-12] 1,000 microgm PO DAILY #0 tablet 12/31/16 07/05/19 Unknown Rx Ergocalciferol (Vitamin D2) 50,000 unit PO Q7D #0 capsule 12/31/16 07/05/19 05/02/19 09:00 Rx [Vitamin D] Ferrous Sulfate 325 mg PO WBREAKFAST #0 tablet 12/31/16 07/05/19 05/04/19 Rx Docusate Sodium [Colace] 100 mg PO QHS 06/25/19 07/05/19 Unknown History Folic Acid 1 mg PO BID 06/25/19 07/05/19 Unknown History Furosemide 20 mg PO EVERY OTHER DAY 06/25/19 07/05/19 Unknown History Omeprazole 1 cap PO DAILY 06/27/19 07/05/19 Unknown History Rivaroxaban [Xarelto] 20 mg PO DAILY 06/27/19 07/05/19 Unknown History Tapentadol HCl [Nucynta] 100 mg PO DAILY #10 tab 07/03/19 07/05/19 Unknown Rx - History of Present Illness-Neuro Nature of Presenting Problem: pt is a 83 yr old female presenting via EMS post seizure like activity. pt is a resident at [facility], today while napping pt granddaughter/caregiver noted pt began shaking, eyes opened and rolled back, when shaking stopped granddaughter was unable to get pt to respond to her. upon arrival pt is awake, alert and confused. family reports pt is normally alert and oriented, able to ambulate with walker. pt was discharged from this facility yesterday to [facility] for rehab. pt denies any complaints on exam. (Marcelle Milligan) Review of Systems - Adult - REVIEW OF SYSTEMS - ADULT ROS:: ROS per family Constitutional: denies: fever Eyes: reports: no symptoms reported Ears, Nose, Mouth & Throat: reports: no symptoms reported Cardiovascular: reports: no symptoms reported Respiratory: reports: no symptoms reported Gastrointestinal: reports: no symptoms reported Genitourinary: reports: frequent UTI's Musculoskeletal: reports: no symptoms reported Integumentary: reports: no symptoms reported Neurological: reports: seizure, other (confusion) Psychiatric: reports: no symptoms reported Endocrine: reports: no symptoms reported Hematologic/Lymphatic: reports: no symptoms reported Allergic/Immunologic: reports: no symptoms reported All Other Systems: Reviewed and Negative <Marcelle Milligan - Last Filed: 07/04/19 20:59> Past History - Adult - PAST MEDICAL HISTORY-ADULT Review of Records: reports: Old Records Reviewed, Nursing Assessment Review, Medications Reviewed, Social history reviewed & non-contributory. Major Childhood Illnesses: reports: denies history Cardiovascular: reports: CHF, HTN, hyperlipidemia, [place], pacemaker Respiratory: reports: sleep apnea Gastrointestinal: reports: denies history Obstetrical/Gynecological: reports: denies history Genitourinary: reports: dialysis (stopped 3 years prior per pt), ESRD, kidney disease Musculoskeletal: reports: osteoporosis Neurological: reports: other (spina bifada; spinal stenosis) Endocrine/Immune: reports: Diabetes Other Conditions: reports: cataract/glaucoma - PRIOR SURGERIES/PROCEDURES Surgical/Procedure History: reports: cholecystectomy, pacemaker, hysterectomy, tonsillectomy, hernia repair, orthopedic (extremity) (carpal tunnel), joint replacement (TKR), breast (biopsy), other (cataract removal; kidney stent; lithrotripsy) - IMMUNIZATION STATUS Childhood Immunizations: See Nurse Assessment Flu Vaccine: See Nurse Assessment - FAMILY HISTORY Family History: reviewed, not pertinent - SOCIAL HISTORY Smoking: quit greater than 1 year Substance Use: denies Living Situation: care facility ([facility]) <Marcelle Milligan - Last Filed: 07/04/19 20:59> Physical Exam- Neurological - Physical Exam-Neuro Initial Vital Signs Reviewed: Yes General Appearance: appears well, no apparent distress Eye Exam: left eye: normal inspection, PERRL HENMT: normocephalic/atraumatic, moist mucous membranes Head Injury: no evidence of injury Neck: non-tender, full range of motion, supple, normal inspection Respiratory: lungs clear, normal breath sounds Cardiovascular: normal peripheral pulses, regular rate, rhythm Abdominal Exam: normal bowel sounds, non tender, soft Lymphatic: no adenopathy Extremity: normal range of motion, non-tender, normal inspection Integumentary: normal color, normal turgor, warm/dry Psych/Mental Status: normal mood/affect - Glascow Coma Scale Best Eye Response: (4) open spontaneously Best Verbal Response: (4) confused conversation Best Motor Response: (6) obeys commands Total Glascow Score: 14 <Marcelle Milligan - Last Filed: 07/04/19 20:59> Progress - PLAN OF CARE/RESULTS Result Diagrams: 07/04/19 17:50 07/04/19 18:15 - XRAY 1 XRAY Study: Chest Impression: Normal ( Signed EXAM: CHEST-PORTABLE INDICATION: seizure TECHNIQUE: One view COMPARISON: 06/29/2019 FINDINGS: The left PICC line is in stable position. There is a calcified granuloma at the right lung apex. The lungs are grossly clear, otherwise. There is no discrete pleural fluid collection or pneumothorax. The cardiomediastinal silhouette and central vasculature are grossly unremarkable. IMPRESSION: No evidence of acute pathology by plain radiograph. Electronically signed by Jesus Manuel Carbone 07/04/2019 8:49 PM 07/04/192048 Interpreting Physician: Jesus Manuel Carbone MD Dictated Date/Time: 07/04/192046 cc: Marcelle Milligan MD; Darren Mckeon MD) Comparison with other Films: no changes (06/29/19) - CT/MRI 1 CT Study: Head Impression: Abnormal (Signed EXAM: CT HEAD W/O CONTRAST INDICATION: new onset of seizure TECHNIQUE: This exam was performed using automated exposure control, adjustment of mA or kV according to patient size, and/or use of iterative reconstruction technique. COMPARISON: None. FINDINGS: There is moderate diffuse brain atrophy. There is suggestion of mild periventricular white matter microangiopathy. There is no definite acute infarct given the limited sensitivity of CT versus MRI. There is no discrete intracranial mass, mass effect, or intracranial hemorrhage. The surrounding soft tissues and bony structures are essentially unremarkable. IMPRESSION: Chronic appearing changes as described. No definite acute intracranial pathology by CT. Electronically signed by Jesus Manuel Carbone 07/04/2019 7:35 PM 07/04/191934 Interpreting Physician: Jesus Manuel Carbone MD Dictated Date/Time: 07/04/191932 cc: Marcelle Milligan MD; Darren Mckeon MD) Comparison with other Films: no prior study - CONSULTS/PCP/HOSPITALIST Notification #1 *Consult/PCP/Hospitalist*: Dr Manzanares Time Discussed: 21:00 Reason/Comments: discussed plan of care for pt admit Consult Disposition: Admit - CHANGE OF SHIFT REPORT (ED Provider) 1 Report Given and Care Transferred to:: dr Reveles Time of Transfer: 19:00 Items Pending: Labs, CT/MRI Results <Marcelle Milligan - Last Filed: 07/04/19 20:59> - PLAN OF CARE/RESULTS Result Diagrams: 07/04/19 17:50 07/04/19 18:15 - EKG 1 Time of EKG reading by physician:: 19:17 EKG Read and Signed by:: Dayna Weiss EKG Interpretation (*Must complete 3 of following elements*): Abnormal Rate: 84 Rhythm: atrial fib [place]: normal ST Wave: non-specific ST changes Prior EKG Comparison: unchanged from prior <Dayna Weiss - Last Filed: 07/05/19 04:40> - PLAN OF CARE/RESULTS Progress/Plan/Lab Results: Vital Signs - 8 hr 07/04/19 21:33 07/04/19 22:15 Pulse Rate 83 83 Respiratory Rate 19 19 Blood Pressure 149/91 140/90 O2 Sat by Pulse Oximetry 99 99 Laboratory Results - last 24 hr 07/04/19 07/04/19 07/04/19 17:50 17:50 18:15 WBC 11.53 H RBC 4.51 Hgb 12.5 D Hct 38.2 MCV 84.7 MCH 27.7 MCHC 32.7 L RDW Std Deviation 14.6 H Plt Count 278 MPV 10.3 Immature Gran % (Auto) 1.6 H Neut % (Auto) 87.3 H Lymph % (Auto) 5.8 L Wilson % (Auto) 5.0 Eos % (Auto) 0.0 Baso % (Auto) 0.3 Immature Gran # (Auto) 0.19 H Neut # (Auto) 10.06 H Lymph # (Auto) 0.67 L Wilson # (Auto) 0.58 Eos # (Auto) 0.00 Baso # (Auto) 0.03 PT INR PTT (Actin FS) Sodium 135 L Potassium 4.8 Chloride 98 Carbon Dioxide 25 Anion Gap 12 BUN 17 Creatinine 1.2 H Estimated GFR/1.73 m2 43 BUN/Creatinine Ratio 14 Glucose 111 H Calculated Osmolality 272 Calcium 8.3 L Total Bilirubin 0.50 AST 14 ALT < 5 L Alkaline Phosphatase 83 Troponin T < 0.010 Total Protein < 0.2 L Albumin 3.1 L Albumin/Globulin Ratio Not Reportable Urine Source Urine Color Urine Clarity Urine pH Ur Specific [place] Urine Protein Urine Ketones Urine Blood Urine Nitrite Urine Bilirubin Urine Urobilinogen Urine Microscopic RBC Urine WBC Urine Microscopic WBC Ur Epithelial Cells Urine Bacteria Urine Glucose Urine Opiates Screen Ur Oxycodone Screen Urine Methadone Screen U Propoxyphene Qual Ur Barbituates Screen Ur Tricyclics Screen Ur Phencyclidine Scrn Ur Amphetamines Screen U Methamphetamines Scrn U Benzodiazepines Scrn Urine Cocaine Screen U Cannabinoids Screen 07/04/19 07/04/19 07/04/19 18:15 19:41 19:41 WBC RBC Hgb Hct MCV MCH MCHC RDW Std Deviation Plt Count MPV Immature Gran % (Auto) Neut % (Auto) Lymph % (Auto) Wilson % (Auto) Eos % (Auto) Baso % (Auto) Immature Gran # (Auto) Neut # (Auto) Lymph # (Auto) Wilson # (Auto) Eos # (Auto) Baso # (Auto) PT 18.4 H INR 1.45 PTT (Actin FS) 35.5 Sodium Potassium Chloride Carbon Dioxide Anion Gap BUN Creatinine Estimated GFR/1.73 m2 BUN/Creatinine Ratio Glucose Calculated Osmolality Calcium Total Bilirubin AST ALT Alkaline Phosphatase Troponin T Total Protein Albumin Albumin/Globulin Ratio Urine Source CLEAN CATCH Urine Color YELLOW Urine Clarity CLEAR Urine pH 7.0 Ur Specific [place] 1.015 Urine Protein 1+(30 mg/dL) A Urine Ketones 1+(Small) A Urine Blood 2+ A Urine Nitrite NEGATIVE Urine Bilirubin NEGATIVE Urine Urobilinogen 1 Urine Microscopic RBC <10 Urine WBC TRACE A Urine Microscopic WBC <10 Ur Epithelial Cells <10 Urine Bacteria NEGATIVE Urine Glucose NEGATIVE Urine Opiates Screen NONE DETECTED Ur Oxycodone Screen NONE DETECTED Urine Methadone Screen NONE DETECTED U Propoxyphene Qual NONE DETECTED Ur Barbituates Screen PRESUMPTIVE POSITIVE A Ur Tricyclics Screen NONE DETECTED Ur Phencyclidine Scrn NONE DETECTED Ur Amphetamines Screen NONE DETECTED U Methamphetamines Scrn NONE DETECTED U Benzodiazepines Scrn NONE DETECTED Urine Cocaine Screen NONE DETECTED U Cannabinoids Screen NONE DETECTED Orders Category Date Time Status Admit - [facility] Routine AdmDCTranf 07/05/19 00:03 Active Activity - Strict Bedrest ORDERED Care 07/05/19 00:03 Active Cardiac Monitoring DIRECTED Care 07/04/19 18:07 Completed Neurological Check ORDERED Care 07/05/19 00:03 Active Resuscitation Status Routine Care 07/04/19 21:03 Ordered Saline Loc NOW Care 07/04/19 18:07 Completed Vital Signs Order Q 4-HR ASSESS Care 07/05/19 00:03 Active Z-Document. for Tele Applied ORDERED Care 07/05/19 00:03 Completed Regular Diet Diet 07/05/19 00:04 Active CHEST-PORTABLE [RAD] Stat Exams 07/04/19 18:[address] HEAD W/O CONTRAST [CT] Stat Exams 07/04/19 18:07 Completed CBC WITH ELECTRONIC DIFF [HEME] Stat Lab 07/04/19 17:50 Completed COMPREHENSIVE METABOLIC PANEL [CHEM] Stat Lab 07/04/19 18:15 Completed PROTIME WITH INR [COAG] Stat Lab 07/04/19 18:15 Completed PTT [COAG] Stat Lab 07/04/19 18:15 Completed TROPONIN T Stat Lab 07/04/19 17:50 Completed URINE CULTURE [RM] Routine Lab 07/04/19 20:19 Re[address]UG SCREEN [address] Stat Lab 07/04/19 19:41 Completed ua [URINALYSIS PL W/POSS RFLX CULT] [URINALYSIS] Stat Lab 07/04/19 19:41 Completed 0.9% Sodium Chloride Inj [Ns] 1,000 ml Med 07/04/19 18:06 Discontinued IV 500 mls/hr 0.9% Sodium Chloride Inj [Ns] 1,000 ml Med 07/04/19 21:02 Active IV 75 mls/hr Telemetry [OM.EQ] Routine Oth 07/05/19 00:03 Active EKG [EKG] Stat Ther 07/04/19 18:07 Ordered Transfer/Admit Order [TRANSFER] Routine Transfer 07/04/19 21:02 Completed Patient signed out to me from Dr Milligan pending labs and dispo. Labs mostly WNL and CT head not showing anything acute. Spoke to family about findings and they state that she has had an acute onset of change of mental status and this is not how she was actingyesterday. She was just released from the hospital yesterday and was hospitalized for bacteremia and UTI. She has a PICC line for UTI adalgisa tment with ESBL. Spoke to Dr Manzanares who was caring for her on the floor yesterday prior to DC and he agrees that what we are discribing on physical exam is acute change and we can admit her. Wanted NS 75 cc/hr ordered. He will consider ordering MRI in the AM to rule out stroke althougth there is low suspicion for this. Low suspicion for seizures as well given story. Family counseled many times on findings and plan. Deemed stable for floor with telemetry and fall precations. (Dayna Weiss) Departure <Marcelle Milligan - Last Filed: 07/04/19 20:59> - Departure Date of Disposition Decision: 07/04/19 Time of Disposition Decision: 21:30 Certified Medical Emergency: Emergent - Critical Care Note This patient required my direct & personal management of CC.: No <Dayna Weiss - Last Filed: 07/05/19 04:40> - Departure DIAGNOSIS: Altered mental status Disposition: ADMITTED INPATIENT 09 Condition: Fair Attestation - Physician/ PATRICIA Attestation Patient care was provided by Advanced Practice Provider:: No The physician spent face to face time with patient:: Yes Advanced Practice Provider documentation review:: Supervising physician onsite and consulted in the evaluation and care of this patient. The physician did have a face to face encounter with the patient. <Dayna Weiss - Last Filed: 07/05/19 04:40> This chart was documented by the indicated scribe, (Francine Balderas Scribe) and accurately reflects the services I performed and decisions made by me, Marcelle Milligan MD, as attested by the provider's signature.
[2019-07-04 18:51] LABS: AGAP 12; ALBUMIN 3.1 g/dL (3.5-5.0); ALKALINE PHOSPHATASE 83 U/L (32-104); BUN 17 mg/dL (8-22); CALCIUM 8.3 mg/dL (8.8-10.2); CHLORIDE 98 mmol/L (98-107); COSMO 272; CREATININE 1.2 mg/dL (0.5-0.9); ESTIMATED GFR 43; GLUCOSE 111 mg/dL (70-104); GOT 14 U/L (10-30); GPT < 5 U/L (10-36); POTASSIUM 4.8 mmol/L (3.5-5.1); SODIUM 135 mmol/L (136-145); TCO2 25 mmol/L (25-35); TOTAL PROTEIN < 0.2 g/dL (6.3-8.3)
--- NOTE | 2019-07-04 19:37 | Diag Imaging Result Doc PS360 ---
EXAM: CT HEAD W/O CONTRAST INDICATION: new onset of seizure TECHNIQUE: This exam was performed using automated exposure control, adjustment of mA or kV according to patient size, and/or use of iterative reconstruction technique. COMPARISON: None. FINDINGS: There is moderate diffuse brain atrophy. There is suggestion of mild periventricular white matter microangiopathy. There is no definite acute infarct given the limited sensitivity of CT versus MRI. There is no discrete intracranial mass, mass effect, or intracranial hemorrhage. The surrounding soft tissues and bony structures are essentially unremarkable. IMPRESSION: Chronic appearing changes as described. No definite acute intracranial pathology by CT. Electronically signed by Jesus Manuel Carbone 07/04/2019 7:35 PM
[2019-07-04 20:12] LABS: BILIRUBIN URINE NEGATIVE (NEGATIVE); BLOOD URINE 2+ (NEGATIVE); CLARITY CLEAR (CLEAR); COLOR YELLOW; GLUCOSE URINE NEGATIVE (NEGATIVE); KETONE URINE 1+(Small) mg/dL (NEGATIVE); LEUKOCYTES URINE TRACE (NEGATIVE); NITRITE URINE NEGATIVE (NEGATIVE); PROTEIN URINE 1+(30 mg/dL) mg/dL (NEGATIVE); SP GRAVITY URINE 1.015; UROBILINOGEN URINE 1 mg/dL
[2019-07-04 20:19] LABS: URINE BACTERIA NEGATIVE /HFP; URINE EPITHELIAL CELLS <10 /HPF (<10); URINE RBC <10 /HPF (<10); URINE SOURCE CLEAN CATCH; URINE WBC <10 /HPF (<10)
[2019-07-04 20:23] LABS: UR AMPHETAMINES QUAL NONE DETECTED (NONE DETECT); UR BARBITUATES QUAL PRESUMPTIVE POSITIVE (NONE DETECT); UR BENZODIAZEPIN QUAL NONE DETECTED (NONE DETECT); UR CANNABINOIDS QUAL NONE DETECTED (NONE DETECT); UR COCAINE QUAL NONE DETECTED (NONE DETECT); UR METHADONE QUAL NONE DETECTED (NONE DETECT); UR METHAMPHETAMINE QUAL NONE DETECTED (NONE DETECT); UR OPIATES QUAL NONE DETECTED (NONE DETECT); UR OXYCODONE QUAL NONE DETECTED (NONE DETECT); UR PCP QUAL NONE DETECTED (NONE DETECT); UR PROPOXYPHENE QUAL NONE DETECTED (NONE DETECT); UR TCA QUAL NONE DETECTED (NONE DETECT)
--- NOTE | 2019-07-04 20:51 | Diag Imaging Result Doc PS360 ---
EXAM: CHEST-PORTABLE INDICATION: seizure TECHNIQUE: One view COMPARISON: 06/29/2019 FINDINGS: The left PICC line is in stable position. There is a calcified granuloma at the right lung apex. The lungs are grossly clear, otherwise. There is no discrete pleural fluid collection or pneumothorax. The cardiomediastinal silhouette and central vasculature are grossly unremarkable. IMPRESSION: No evidence of acute pathology by plain radiograph. Electronically signed by Jesus Manuel Carbone 07/04/2019 8:49 PM
[2019-07-04] MEDS ORDERED: NS 1,000 ML IV ONE (21:02)
[2019-07-04] MEDS ORDERED: NORCO-7.5 PO ONE (23:07)
--- NOTE | 2019-07-05 07:27 | EKG Report ---
Test Performed on : 07/04/2019 7:13:39 PM Test Reason : seizure Blood Pressure : / mmHG Vent. Rate : 084 BPM Atrial Rate : 225 BPM P-R Int : 000 ms QRS Dur : 084 ms QT Int : 384 ms P-R-T Axes : 000 010 253 degrees QTc Int : 453 ms Atrial flutter. with variable AV block. Low voltage QRS Nonspecific ST and T wave abnormality Abnormal ECG When compared with ECG of 27-JUN-2019 08:45, Vent. rate has decreased BY 43 BPM Unconfirmed Result
[2019-07-05 07:47] LABS: HEMATOCRIT 33.1 % (37.0-47.0); HEMOGLOBIN 10.9 g/dL (12.0-16.0); MCH 28.1 PG (27-31); MCHC 32.9 g/dL (33-37); MCV 85.3 FL (81-99); MPV 9.9 FL (7.4-10.4); RBC 3.88 XMIL (4.2-5.4); RDW 14.6 % (11.5-14.5); WBC 10.63 X1000 (4.8-10.8)
[2019-07-05 08:02] LABS: AGAP 10; ALBUMIN 2.6 g/dL (3.5-5.0); ALKALINE PHOSPHATASE 72 U/L (32-104); BUN 16 mg/dL (8-22); CALCIUM 7.9 mg/dL (8.8-10.2); CHLORIDE 101 mmol/L (98-107); COSMO 272; ESTIMATED GFR 53; GLUCOSE 83 mg/dL (70-104); GOT 11 U/L (10-30); GPT < 5 U/L (10-36); MAGNESIUM 1.6 mg/dL (1.5-2.7); POTASSIUM 3.8 mmol/L (3.5-5.1); SODIUM 136 mmol/L (136-145); TCO2 25 mmol/L (25-35); TOTAL PROTEIN 5.6 g/dL (6.3-8.3)
--- NOTE | 2019-07-05 08:59 | HISTORY AND PHYSICAL ---
CHIEF COMPLAINT: Questionable seizure. HISTORY OF PRESENT ILLNESS: Ms. Colon is an 83-year-old female who was just discharged from our service on 07/03/2019 to [facility] with an ESBL Escherichia coli bacteremia and urinary tract infection. She was on Invanz IV. 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 Per family report at the bedside, they reported that the patient began shaking, her eyes rolled back in her head, and when she stopped shaking, they were unable to get her to respond. In the ED, the patient was awake upon arrival, alert, but confused. Today, Ms. Colon does arouse, but she is quite sleepy. She was responding appropriately. Initial head CT showed chronic- appearing changes. We are going to follow up with the MRI. Laboratory data is essentially unremarkable. She was admitted to the medical floor at [place], and we will continue with further treatment and evaluation. PAST MEDICAL HISTORY: 1. Chronic UTIs, most recent ESBL-positive Escherichia coli. 2. Congestive heart failure. 3. Diabetes. 4. Chronic kidney disease. 5. Hypertension. 6. 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 PAST SURGICAL HISTORY: 1. Breast biopsy. 2. Cholecystectomy. 3. Cataract removal. 4. Hysterectomy. 5. Hernia repair. 6. Tonsillectomy. 7. Carpal tunnel. 8. ESWL. SOCIAL HISTORY: She was a 2-pack per day smoker. Denied alcohol or illicit drug use. ALLERGIES: 1. Indocin that causes nausea and vomiting. 2. Ketoprofen. 3. Meloxicam. 4. Celebrex. 5. Daypro. 6. Feldene. 7. Relafen. HOME MEDICATIONS: 1. Invanz 1 gram IV every 24 hours. 2. Aspirin 81 mg p.o. daily. 3. Vitamin B12. 4. Colace 100 mg p.o. at bedtime. 5. Vitamin D 50,000 units p.o. every 7 days. 6. Uloric 40 mg p.o. daily. 7. Ferrous sulfate 325 mg p.o. with breakfast. 8. Folic acid 1 mg p.o. b.i.d. 9. Lasix 20 mg p.o. every other day. 10. Lopressor 50 mg p.o. b.i.d. 11. Movantik 25 mg p.o. daily. 12. Omeprazole 1 capsule p.o. daily. 13. Xarelto 20 mg p.o. daily. 14. Zocor 20 mg p.o. daily. 15. Nucynta 100 mg p.o. daily. 16. Detrol LA 4 mg p.o. daily. REVIEW OF SYSTEMS: A 12-point review of systems was complete and negative, except for those mentioned in the HPI. PHYSICAL EXAMINATION: VITAL SIGNS: Temperature is 97.7 degrees, heart rate 84, respirations 18, blood pressure 143/81, O2 is 100% on room air. GENERAL: Ms. Colon is an 83-year-old female who is lying in the bed. She is still sleepy. However, she does wake up appropriate. She is in no acute distress. HEENT: Atraumatic, normocephalic. PERRL. NECK: Supple. Trachea midline. CARDIOVASCULAR: S1, S2 appreciated. No murmurs, gallops, rubs noted. RESPIRATORY: Lung sounds are clear bilaterally. GASTROINTESTINAL: Appears to be soft, nontender, nondistended. Positive bowel sounds x4 quadrants. EXTREMITIES: The patient was moving all her extremities in the bed. NEUROLOGIC: The patient is still somewhat sleepy. However, she does wake up to voice and gentle touch. She will converse with you appropriately. She would even laugh a little bit, and then fall back off to sleep. DIAGNOSTIC DATA: 1. Head CT: Chronic-appearing changes. 2. Chest x-ray: No evidence of acute pathology. 3. EKG is currently pending. 4. Initial EKG showed atrial flutter with variable AV block at 84 beats per minute. LABORATORY DATA: White count 10, hemoglobin and hematocrit 10 and 33, platelet count is 243,000. Sodium 136, potassium 3.8, BUN 16, creatinine 1, blood glucose is 83. Toxicology screen positive for barbiturates. ASSESSMENT AND PLAN: 1. Questionable seizure activity versus cerebrovascular accident versus stroke. Head CT was negative. We have ordered an MRI of the brain. Will continue with frequent neurologic checks, and await the results of the MRI. Hold off on seizure medications for now. 2. Known extended spectrum beta-lactamase Escherichia coli bacteremia and urinary tract infection, on Invanz. We will continue with that and will not add 2nd abx unless culture warrants it. 3. Diabetes mellitus type 2. Continue home regimen and diabetic diet. 4. Congestive heart failure, stable. 5. Chronic kidney disease, at baseline. 6. Hypertension. Continue home medications. 7. 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 8. Code status. DO NOT RESUSCITATE level 1. We did broach the subject of possible palliative and/or hospice care if there was no improvement over the next few days, and they felt like the patient would be inappropriate for rehab. Will continue ongoing discussion over the next few days. Further recommendation to follow physician evaluation, laboratory and diagnostic data. Dictated by DIONISIO Lockett for Silver Manzanares MD cc: MD Darren Taylor MD [id number]
[2019-07-05] MEDS: INVANZ 1 GM/NS 1 GM/50 ML IVPB IV SCH (10:19)
--- NOTE | 2019-07-05 15:57 | Diag Imaging Result Doc PS360 ---
EXAM: MRI BRAIN W/O CONTRAST - 07/05/2019 HISTORY: AMS TECHNIQUE: MRI brain without contrast COMPARISON: 07/04/2019 CT head without contrast FINDINGS: There are artifacts from motion which limit detail. There are atrophic changes and mild chronic microvascular ischemic changes. The diffusion weighted images show no areas of restricted diffusion (no evidence of acute infarct). There is no intracranial hemorrhage, mass effect, or midline shift identified. IMPRESSION: Artifacts from motion which limit detail. No visible acute intracranial abnormality. Electronically signed by José Miguel Peoples 07/05/2019 3:55 PM
[2019-07-05] MEDS: XARELTO PO SCH (17:41)
[2019-07-05] MEDS: FOLIC ACID PO SCH (21:04)
[2019-07-05] MEDS: COLACE PO SCH (21:04)
[2019-07-05] MEDS: ZOCOR PO SCH (21:04)
[2019-07-05] MEDS: LOPRESSOR PO SCH (21:04)
--- NOTE | 2019-07-05 21:57 | HISTORY AND PHYSICAL ---
ADDENDUM: The patient was seen and examined by myself. Full note dictated and discussed with nurse practitioner. Patient actually was just in the hospital for approximately 12 days. She was admitted with altered mental status, diagnosed with an ESBL positive E coli and ESBL positive bacteremia, stayed on Invanz for several days until her culture was negative, then had a PICC line placed and then was transferred to [facility]. During the hospital stay, she had no neurologic events and no issues. Oddly enough upon arrival to [facility], she was in her baseline state of health. A few hours later, she had some acute neurological event, which certainly may have been a seizure, presented back to the ER postictal. She was confused. Over the next hours and upon my exam, although she was not as bad as she was in the ER, she still is not back to her baseline. We will admit her to the hospital, continue her Invanz, recheck blood cultures, urine cultures. Currently, her labs are normal, and we will follow. cc: Silver Manzanares MD
[2019-07-06] MEDS: PRILOSEC PO SCH (06:34)
[2019-07-06] MEDS: MOVANTIK PO SCH (06:34)
[2019-07-06] MEDS: LOPRESSOR PO SCH ×2 (08:00→21:29)
[2019-07-06] MEDS: NUCYNTA PO SCH (08:00)
[2019-07-06] MEDS: ASPIRIN EC PO SCH (08:01)
[2019-07-06] MEDS: FOLIC ACID PO SCH ×2 (08:01→21:29)
[2019-07-06] MEDS: FERROUS SULFATE PO SCH (08:01)
[2019-07-06] MEDS: DETROL LA PO SCH (08:02)
[2019-07-06] MEDS: INVANZ 1 GM/NS 1 GM/50 ML IVPB IV SCH (08:02)
[2019-07-06] MEDS: VITAMIN B-12 PO SCH (08:02)
[2019-07-06] MEDS: ULORIC PO SCH (08:02)
[2019-07-06] MEDS: XARELTO PO SCH (16:17)
--- NOTE | 2019-07-06 19:47 | PROGRESS NOTE ---
DATE: 07/06/2019 SUBJECTIVE: Patient is much more awake, alert. She appears back to her baseline mental status. She is in no distress. She slept last night with her CPAP without any incident. PHYSICAL EXAMINATION: Vital Signs: Temperature 97.7 degrees, pulse 68, respiratory rate 18, BP 154/77. General: Patient is an elderly female who is in no current respiratory distress. HEENT: Normocephalic. Neck: Supple. Cardiovascular: Regular rate. No murmurs. Chest: Clear and nonlabored. Abdomen: Soft, obese, nondistended, nontender. Extremities: Moves all extremities. No edema. Neurologic: No focal neurological changes. Patient appears awake, alert, oriented, and appears at her baseline. ASSESSMENT: 1. Acute metabolic encephalopathy, uncertain of the etiology. She was recently in the hospital with extended-spectrum beta lactamase positive bacteremia and urinary tract infection. Currently, her urine culture is negative. Blood culture is still pending. I expect that she may have had a syncopal episode which then brought about possibly a seizure. Currently, she is back to normal. MRI was normal. We will continue to watch. We will get physical therapy and follow. 2. Diabetes. 3. Congestive heart failure. 4. Chronic kidney disease. 5. Hypertension. cc: Silver Manzanares MD
[2019-07-06] MEDS: COLACE PO SCH (21:29)
[2019-07-06] MEDS: ZOCOR PO SCH (21:29)
[2019-07-07 05:53] LABS: HEMATOCRIT 33.7 % (37.0-47.0); HEMOGLOBIN 10.8 g/dL (12.0-16.0); MCH 27.4 PG (27-31); MCV 85.5 FL (81-99); MPV 10.1 FL (7.4-10.4); RBC 3.94 XMIL (4.2-5.4); RDW 14.9 % (11.5-14.5); WBC 9.39 X1000 (4.8-10.8)
[2019-07-07] MEDS: PRILOSEC PO SCH (06:17)
[2019-07-07] MEDS: MOVANTIK PO SCH (06:17)
[2019-07-07 06:34] LABS: POTASSIUM 3.3 mmol/L (3.5-5.1)
[2019-07-07] MEDS: DETROL LA PO SCH (08:46)
[2019-07-07] MEDS: FOLIC ACID PO SCH ×2 (08:46→21:29)
[2019-07-07] MEDS: VITAMIN B-12 PO SCH (08:46)
[2019-07-07] MEDS: ASPIRIN EC PO SCH (08:47)
[2019-07-07] MEDS: FERROUS SULFATE PO SCH (08:47)
[2019-07-07] MEDS: LOPRESSOR PO SCH ×2 (08:47→21:29)
[2019-07-07] MEDS: NUCYNTA PO SCH (08:47)
[2019-07-07] MEDS: INVANZ 1 GM/NS 1 GM/50 ML IVPB IV SCH (08:47)
[2019-07-07] MEDS: ULORIC PO SCH (08:47)
[2019-07-07] MEDS ORDERED: LASIX PO SCH (09:00)
--- NOTE | 2019-07-07 16:17 | DISCHARGE SUMMARY ---
ADMISSION DATE: 07/04/2019 DISCHARGE DATE: DISCHARGE DIAGNOSIS: 1. Acute metabolic encephalopathy. 2. Syncopal episode, vasovagal. 3. Hypertension. 4. Chronic urinary tract infections most recently with extended spectrum beta-lactamase positive Escherichia coli. 5. Recent extended spectrum beta-lactamase positive bacteremia currently still on Invanz. 6. Congestive heart failure, diastolic. 7. Diabetes. 8. Chronic kidney disease. 9. Hypertension. 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 DISCHARGE MEDICATIONS: 1. Invanz 1 g IV q.12 to complete 21 days has 7 days left to include 07/08. 2. Aspirin 81 mg daily. 3. Vitamin B12 daily. 4. Colace. 5. Vitamin D. 6. Uloric 40. 7. Folic acid 1 mg b.i.d. 8. Lasix 20 mg every other day. 9. Lopressor 50 mg twice daily. 10. Movantik 25 mg daily. 11. Xarelto 20 mg daily. 12. Zocor 20 mg daily. 13. Nucynta 100 mg daily. 14. Detrol LA 4 mg daily. 15. Omeprazole 40 mg 1 daily. CONSULTATIONS: None. PROCEDURES: None. BRIEF HOSPITAL COURSE: The patient is a 83-year-old female who presented the hospital with a change in her mental status. She had been in the hospital on Invanz for approximately 10 days prior to coming to the hospital and had uneventful hospital course. She was discharged to rehab. Shortly after getting to rehab she apparently had some type of syncopal type event, lost consciousness, unclear she had any seizure-type activity after the event started. Regardless, she is still confused and disoriented when she presented the hospital, therefore she was admitted the hospital. Thankfully she is back to her baseline. She is in no distress. Her urine and blood culture both are negative thus far. DISPOSITION: Patient will be discharged home. She will continue a total 7 more days of Invanz. Will continue her home medications as noted. Continue physical therapy. Further orders as needed. TIME SPENT: Greater than 30 minutes was spent in total care. cc: Silver Manzanares MD
[2019-07-07] MEDS: XARELTO PO SCH (16:45)
--- NOTE | 2019-07-07 16:51 | PROGRESS NOTE ---
DATE: 07/07/2019 SUBJECTIVE: Patient has no new complaints. The daughter notes that she may not be fully back to her baseline mental status, although she is much improved from admission. States she still has some issues with confusion, but is easily reoriented. PHYSICAL EXAM: Vital Signs: Temperature 97.7 degrees, pulse 83, respiratory rate 18, BP 129/66. General: Patient is awake, alert, currently in no distress. HEENT: Normocephalic. Neck: Supple. Cardiovascular: Regular rate. Chest: Chest clear nonlabored. Abdomen: Soft, nondistended. Extremities: Moves all extremities. ASSESSMENT: 1. Acute metabolic encephalopathy, appears improved. 2. Chronic dementia. 3. Syncopal episode resolved. 4. Diabetes. 5. Congestive heart failure. 6. Known coronary artery disease. 7. Extended spectrum beta lactamase positive bacteremia and Escherichia coli, continue Invanz. PLAN: We will continue patient on hospital get physical therapy today. If she tolerates, she can be discharged back to rehab tomorrow. cc: Silver Manzanares MD
[2019-07-07] MEDS: ZOCOR PO SCH (21:29)
[2019-07-07] MEDS: COLACE PO SCH (21:29)
[2019-07-08] MEDS: MOVANTIK PO SCH (06:21)
[2019-07-08] MEDS: PRILOSEC PO SCH (06:22)
[2019-07-08 07:31] VITALS: BP 137/75
[2019-07-08] MEDS ORDERED: KLOR-CON PO ONE (07:43)
[2019-07-08] MEDS: INVANZ 1 GM/NS 1 GM/50 ML IVPB IV SCH (10:21)
[2019-07-08] MEDS: ASPIRIN EC PO SCH (10:21)
[2019-07-08] MEDS: DETROL LA PO SCH (10:21)
[2019-07-08] MEDS: NUCYNTA PO SCH (10:22)
[2019-07-08] MEDS: FERROUS SULFATE PO SCH (10:22)
[2019-07-08] MEDS: VITAMIN B-12 PO SCH (10:22)
[2019-07-08] MEDS: FOLIC ACID PO SCH (10:22)
[2019-07-08] MEDS: ULORIC PO SCH (10:22)
[2019-07-08] MEDS: LOPRESSOR PO SCH (10:24)
--- NOTE | 2019-07-08 13:47 | PROGRESS NOTE ---
DATE: 07/08/2019 SUBJECTIVE: Patient without complaints. PHYSICAL EXAM: Vital Signs Reviewed: Temperature 98 degrees, pulse 60, respiratory 18, BP 137/75. General: Family notes that she is still not back to her baseline mental status. She is still slightly confused. HEENT: Normocephalic. Neck: Supple. Cardiovascular: Regular rate. Chest: Clear. Abdomen: Soft, obese, nondistended. Extremities: Moves all extremities. ASSESSMENT: 1. Metabolic encephalopathy. The patient has known history of mild dementia at home. I expect that the cause between being in the hospital septic into rehab and now back to the hospital. Discussed with family. Hopefully, this will improve, and she will hopefully return back to her baseline. 2. Do not resuscitate. 3. Extended spectrum beta lactamase positive bacteremia. We will continue Invanz for the total course. Hopefully, patient can transition to rehabilitation later this afternoon. cc: Silver Manzanares MD
== END 2019-07-08 12:31 | DRG 71 ==
LOC: P.ED 17:39 → P.EDIPHOLD 22:15 → P.MEDSURG 23:21
PROVIDERS: ATTEND Family Medicine